=== PATIENT | female | born 1980 | race Caucasian/White ===

== ENCOUNTER 2023-08-14 17:32 | Inpatient (IN) | payer OTHER ==
[~2023-08-14] VITALS: Ht 167.6 cm; Wt 66.9 kg
[2023-08-14] MEDS ORDERED: GABA-1171 PO (18:09)
[2023-08-14] MEDS ORDERED: NADO20TA PO (18:09)
[2023-08-14] MEDS ORDERED: VENL1TAB35 PO (18:09)
[2023-08-14] MEDS ORDERED: TRAZ-252 PO (18:10)
[2023-08-14] MEDS ORDERED: OMEP-173 PO (18:10)
[2023-08-14] MEDS ORDERED: MORP15TA2 PO (18:11)
[2023-08-14] MEDS: ONDANSETRON 4MG 2ML VIAL IV ONE (18:29)
[2023-08-14] MEDS: NS 1,000 ML IV SCH (18:29)
[2023-08-14] MEDS: MORPHINE 4 MG/ML 1ML VIAL IV ONE (18:30)
[2023-08-14] MEDS ORDERED: LACT20EL PO (18:45)
[2023-08-14 18:48] LABS: BASO # 0.1 10^3/uL (0.0-0.2); BASO % 0.7 % (0.0-1.0); EOS % 0.4 % (0.0-3.0); HEMATOCRIT 24.6 % (36.0-47.0); HEMOGLOBIN 8.5 g/dl (12.0-15.5); LYMPH # 2.1 10^3/uL (1.5-5.0); LYMPH % 22.9 % (24.0-44.0); MEAN CORPUSCULAR HEMOGLOBIN 34.1 pg (27.0-33.0); MEAN CORPUSCULAR HGB CONC 34.6 g/dl (32.0-36.5); MEAN CORPUSCULAR VOLUME 98.8 fl (80.0-96.0); MONO # 0.9 10^3/uL (0.0-0.8); MONO % 9.9 % (2.0-8.0); NEUTROPHILS # 5.9 10^3/uL (1.5-8.5); NEUTROPHILS % 65.7 % (36.0-66.0); PLATELET COUNT, AUTOMATED 110 10^3/uL (150-450); RED BLOOD COUNT 2.49 10^6/uL (4.00-5.40)
[2023-08-14 19:03] LABS: INR 1.68; PROTHROMBIN TIME 19.2 SECONDS (12.5-14.5)
[2023-08-14 19:04] LABS: LIPASE 40 U/L (12-53); PARTIAL THROMBOPLASTIN TIME 43.6 SECONDS (24.8-34.2)
[2023-08-14 19:05] LABS: AMYLASE 132 U/L (30-118)
[2023-08-14 19:06] LABS: ALBUMIN 2.3 G/DL (3.2-5.2); ALKALINE PHOSPHATASE 129 U/L (46-116); ALT/SGPT 24 U/L (7.0-40); AST/SGOT 101 U/L (<34); BILIRUBIN,DIRECT 1.4 MG/DL (<0.4); BILIRUBIN,TOTAL 2.1 MG/DL (0.3-1.2); BLOOD UREA NITROGEN 9 MG/DL (9-23); CALCIUM LEVEL 7.8 MG/DL (8.5-10.1); CARBON DIOXIDE LEVEL 30 MMOL/L (20-31); CHLORIDE LEVEL 101 MMOL/L (98-107); CK-MB VALUE MASS < 1.0 NG/ML (<3.6); CPK CREATINE PHOSPHOKINASE 17 U/L (34-145); GLOMERULAR FILTRATION RATE > 60.0 (>58); GLUCOSE, FASTING 99 MG/DL (60-100); MAGNESIUM LEVEL 1.5 MG/DL (1.8-2.4); MB/CK RELATIVE INDEX 5.88 (< OR =4); POTASSIUM SERUM 3.1 MMOL/L (3.5-5.1); SODIUM LEVEL 135 MMOL/L (136-145); TOTAL PROTEIN 6.3 G/DL (5.7-8.2)
[2023-08-14] MEDS ORDERED: ISOVUE-370 76% 100ML VIAL As Ordered ONE (19:13)
[2023-08-14 19:14] LABS: PROCALCITONIN 0.12 ng/ml
[2023-08-14] MEDS: MAG SULF 1GM/100ML (MAG RUN) 1 GM in IV 1 EA IV ONE (19:46)
[2023-08-14] MEDS: POTASSIUM CHLORIDE 10MEQ SR TABLET PO ONE (19:46)
[2023-08-14 20:08] LABS: RSV AMPLIFICATION NEGATIVE (NEGATIVE)
[2023-08-14] MEDS ORDERED: GABA-282 PO (20:44)
[2023-08-14] MEDS ORDERED: HOME MED LIST COMPLETE! XX SCH (20:45)
[2023-08-14] MEDS: metroNIDAZOLE 500 MG in IV 1 EA IV ONE (21:15)
[2023-08-14] MEDS: cefTRIAXone SOD 1 GM in D5W MINI-BAG PLUS 50 ML IV ONE (21:15)
[2023-08-14] MEDS ORDERED: ALBUTEROL SULFATE 2.5MG/0.5ML INH NEB SOLN NEB PRN (22:55)
[2023-08-14] MEDS ORDERED: HYDROMORPHONE HCL 0.5 MG/ 0.5 ML SYRINGE IV PRN (22:55)
[2023-08-15] MEDS: LACTULOSE 20GM/30ML SYRUP UDC PO SCH (00:26)
[2023-08-15] MEDS: PANTOPRAZOLE 40MG VIAL IV SCH (00:26)
[2023-08-15 06:38] LABS: BASO # 0.1 10^3/uL (0.0-0.2); EOS # 0.1 10^3/uL (0.0-0.5); EOS % 0.8 % (0.0-3.0); HEMATOCRIT 23.6 % (36.0-47.0); HEMOGLOBIN 7.8 g/dl (12.0-15.5); LYMPH # 2.1 10^3/uL (1.5-5.0); LYMPH % 24.6 % (24.0-44.0); MEAN CORPUSCULAR HEMOGLOBIN 33.1 pg (27.0-33.0); MEAN CORPUSCULAR HGB CONC 33.1 g/dl (32.0-36.5); MONO # 0.7 10^3/uL (0.0-0.8); MONO % 8.4 % (2.0-8.0); NEUTROPHILS # 5.4 10^3/uL (1.5-8.5); NEUTROPHILS % 64.8 % (36.0-66.0); PLATELET COUNT, AUTOMATED 104 10^3/uL (150-450); RED BLOOD COUNT 2.36 10^6/uL (4.00-5.40); WHITE BLOOD COUNT 8.3 10^3/uL (4.0-10.0)
[2023-08-15 07:01] LABS: BLOOD UREA NITROGEN 8 MG/DL (9-23); CALCIUM LEVEL 7.4 MG/DL (8.5-10.1); CARBON DIOXIDE LEVEL 26 MMOL/L (20-31); CHLORIDE LEVEL 103 MMOL/L (98-107); CREATININE FOR GFR 0.79 MG/DL (0.55-1.30); GLOMERULAR FILTRATION RATE > 60.0 (>58); GLUCOSE, FASTING 120 MG/DL (60-100); IRON (FE) 34 UG/DL (50-170); PERCENT SATURATION 19.1 % (13.2-45.0); PHOSPHORUS LEVEL 1.6 MG/DL (2.5-4.9); POTASSIUM SERUM 3.2 MMOL/L (3.5-5.1); SODIUM LEVEL 135 MMOL/L (136-145); TOTAL IRON BINDING CAPACITY 178 UG/DL (250-425)
[2023-08-15 07:05] LABS: FERRITIN 156.4 NG/ML (7.3-270.7)
[2023-08-15 08:10] LABS: ETHYL ALCOHOL (ETHANOL) 0.004 % (0.000-0.010)
[2023-08-15] MEDS: VENLAFAXINE 25 MG TAB PO SCH (09:00)
[2023-08-15] MEDS ORDERED: POTASSIUM CHLORIDE 10MEQ SR TABLET PO ONE (09:25)
[2023-08-15 10:31] LABS: VITAMIN B12 LEVEL 1658 PG/ML (211-911)
[2023-08-15] MEDS: PERCOCET 5MG/325MG TAB PO PRN (10:48)
[2023-08-15] MEDS: MAG SULF 1GM/100ML (MAG RUN) 1 GM in IV 1 EA IV SCH (10:49)
[2023-08-15 11:08] LABS: HEPATITIS C VIRUS ABY INDEX 0.05 INDEX (<0.8)
[2023-08-15 11:09] LABS: HEPATITIS B CORE ANTIBODY IGM NEGATIVE (NEGATIVE)
[2023-08-15] MEDS ORDERED: MAGNESIUM SULFATE 1GM/100ML D5W BAG (10MG/ML) As Ordered ONE (15:09)
[2023-08-15] MEDS: K-PHOS NEUTRAL 250MG TABLET (SOD.PHOSPHATE/POT.PHOSPHATE) PO SCH (15:10)
[2023-08-15] MEDS: NADOLOL 20MG TABLET PO SCH (15:26)
[2023-08-15] MEDS: MORPHINE 2 MG/ML 1ML VIAL IV PRN (15:26)
[2023-08-15] MEDS: GABAPENTIN 300 MG CAP PO SCH (15:26)
[2023-08-15 16:36] VITALS: BP 105/51; TEMP 98.9; O2SAT 94
[2023-08-15 18:59] VITALS: BP_SYST 108; BP_SYST 88; BP_DIAS 40; BP_DIAS 68
[2023-08-15 20:03] VITALS: BP 101/59; TEMP 98; O2SAT 95
[2023-08-15] MEDS: traZODone 50 MG TAB PO SCH (20:28)
[2023-08-15] MEDS: cefTRIAXone SOD 1 GM in D5W MINI-BAG PLUS 50 ML IV SCH (20:32)
[2023-08-15 23:57] VITALS: BP 92/55; TEMP 97.6; O2SAT 96
[2023-08-16 04:15] VITALS: BP 93/54; TEMP 98.8; O2SAT 96
[2023-08-16 06:06] LABS: BASO # 0.1 10^3/uL (0.0-0.2); BASO % 0.8 % (0.0-1.0); EOS # 0.1 10^3/uL (0.0-0.5); EOS % 1.6 % (0.0-3.0); HEMATOCRIT 23.8 % (36.0-47.0); HEMOGLOBIN 7.8 g/dl (12.0-15.5); LYMPH # 2.9 10^3/uL (1.5-5.0); LYMPH % 33.4 % (24.0-44.0); MEAN CORPUSCULAR HEMOGLOBIN 33.1 pg (27.0-33.0); MEAN CORPUSCULAR HGB CONC 32.8 g/dl (32.0-36.5); MEAN CORPUSCULAR VOLUME 100.8 fl (80.0-96.0); MONO # 0.7 10^3/uL (0.0-0.8); MONO % 7.5 % (2.0-8.0); NEUTROPHILS # 4.9 10^3/uL (1.5-8.5); NEUTROPHILS % 56.5 % (36.0-66.0); PLATELET COUNT, AUTOMATED 110 10^3/uL (150-450); RED BLOOD COUNT 2.36 10^6/uL (4.00-5.40); WHITE BLOOD COUNT 8.7 10^3/uL (4.0-10.0)
[2023-08-16 06:37] LABS: BLOOD UREA NITROGEN 8 MG/DL (9-23); CALCIUM LEVEL 7.8 MG/DL (8.5-10.1); CARBON DIOXIDE LEVEL 26 MMOL/L (20-31); CHLORIDE LEVEL 107 MMOL/L (98-107); GLOMERULAR FILTRATION RATE > 60.0 (>58); GLUCOSE, FASTING 108 MG/DL (60-100); POTASSIUM SERUM 3.1 MMOL/L (3.5-5.1); SODIUM LEVEL 139 MMOL/L (136-145)
[2023-08-16 07:40] LABS: ALBUMIN 1.9 G/DL (3.2-5.2); MAGNESIUM LEVEL 1.7 MG/DL (1.8-2.4); PHOSPHORUS LEVEL 2.5 MG/DL (2.5-4.9)
[2023-08-16 07:42] VITALS: BP 84/48; TEMP 98.2; O2SAT 95
[2023-08-16 08:21] VITALS: BP 90/38
[2023-08-16] MEDS: LR 1,000 ML IV ONE (09:32)
[2023-08-16] MEDS: MAGNESIUM OXIDE 400MG TAB (MAG-OX) PO ONE (09:34)
[2023-08-16] MEDS: POTASSIUM CHLORIDE 10MEQ SR TABLET PO ONE (09:35)
[2023-08-16] MEDS: KCL 10MEQ/100ML SWI (KRUN) 10 MEQ in IV 1 EA IV SCH (09:36)
[2023-08-16] MEDS: MAG SULF 1GM/100ML (MAG RUN) 1 GM in IV 1 EA IV ONE (11:20)
[2023-08-16 12:01] VITALS: BP 102/55; TEMP 97.6; O2SAT 91
[2023-08-16] MEDS: MIDODRINE 5 MG TAB PO SCH (13:01)
[2023-08-16 16:13] VITALS: BP 112/67; TEMP 98.6; O2SAT 96
[2023-08-16 20:00] VITALS: BP 110/64; TEMP 98.4; O2SAT 94
[2023-08-16] MEDS: LACTULOSE 20GM/30ML SYRUP UDC PO SCH (20:37)
[2023-08-17] VITALS (8 sets, daily range): BP systolic 98–116; BP diastolic 54–82; TEMP 97.3–99; O2SAT 91–96
[2023-08-17 09:46] LABS: HEMATOCRIT 22.5 % (36.0-47.0); HEMOGLOBIN 7.3 g/dl (12.0-15.5); MEAN CORPUSCULAR HEMOGLOBIN 32.9 pg (27.0-33.0); MEAN CORPUSCULAR HGB CONC 32.4 g/dl (32.0-36.5); MEAN CORPUSCULAR VOLUME 101.4 fl (80.0-96.0); PLATELET COUNT, AUTOMATED 110 10^3/uL (150-450); RED BLOOD COUNT 2.22 10^6/uL (4.00-5.40); WHITE BLOOD COUNT 8.2 10^3/uL (4.0-10.0)
[2023-08-17 10:14] LABS: BLOOD UREA NITROGEN 7 MG/DL (9-23); CALCIUM LEVEL 7.9 MG/DL (8.5-10.1); CARBON DIOXIDE LEVEL 26 MMOL/L (20-31); CHLORIDE LEVEL 108 MMOL/L (98-107); CREATININE FOR GFR 0.71 MG/DL (0.55-1.30); GLOMERULAR FILTRATION RATE > 60.0 (>58); GLUCOSE, FASTING 84 MG/DL (60-100); MAGNESIUM LEVEL 1.6 MG/DL (1.8-2.4); PHOSPHORUS LEVEL 2.8 MG/DL (2.5-4.9); POTASSIUM SERUM 3.6 MMOL/L (3.5-5.1); SODIUM LEVEL 138 MMOL/L (136-145)
[2023-08-17] MEDS: MAG SULF 1GM/100ML (MAG RUN) 1 GM in IV 1 EA IV SCH (12:14)
[2023-08-17] MEDS: POTASSIUM CHLORIDE 10MEQ SR TABLET PO ONE (12:15)
[2023-08-17] MEDS: ONDANSETRON 4MG 2ML VIAL IV PRN (14:58)
[2023-08-17 16:27] LABS: HEMATOCRIT 26.7 % (36.0-47.0); HEMOGLOBIN 8.8 g/dl (12.0-15.5); MEAN CORPUSCULAR HEMOGLOBIN 33.1 pg (27.0-33.0); MEAN CORPUSCULAR VOLUME 100.4 fl (80.0-96.0); PLATELET COUNT, AUTOMATED 129 10^3/uL (150-450); RED BLOOD COUNT 2.66 10^6/uL (4.00-5.40); WHITE BLOOD COUNT 11.8 10^3/uL (4.0-10.0)
[2023-08-17 18:01] LABS: SOURCE, BODY FLUID ALBUMIN ASCITES
[2023-08-17 18:07] LABS: APPEARANCE, BODY FLUID CLEAR (CLEAR); ASCITES FL COLOR PALE YELLOW (COLORLESS); SOURCE, BODY FLUID ASCITES
[2023-08-17 18:22] LABS: SOURCE, BODY FLUID GLUCOSE ASCITES
[2023-08-17 18:24] LABS: SOURCE, BODY FLUID TOT PROTEIN ASCITES; TOTAL PROTEIN, BODY FLUID < 2.0 G/DL (NOT ESTABLISHED)
[2023-08-17 18:25] LABS: HEMOGLOBIN 8.6 g/dl (12.0-15.5)
[2023-08-17 18:33] LABS: INR 1.58; PROTHROMBIN TIME 18.4 SECONDS (12.5-14.5)
[2023-08-17] MEDS: OCTREOTIDE ACETATE 1,200 MCG in NS 238.8 ML IV SCH (19:59)
[2023-08-17] MEDS: OCTREOTIDE ACETATE 100MCG/ML VIAL **IV ADMINISTRATION ONLY IV ONE (19:59)
[2023-08-18] VITALS (9 sets, daily range): BP systolic 96–110; BP diastolic 50–60; TEMP 97.7–99.1; O2SAT 93–98
[2023-08-18 00:46] LABS: HEMATOCRIT 23.7 % (36.0-47.0)
[2023-08-18 06:19] LABS: HEMATOCRIT 23.7 % (36.0-47.0); HEMOGLOBIN 7.8 g/dl (12.0-15.5); MEAN CORPUSCULAR HEMOGLOBIN 32.6 pg (27.0-33.0); MEAN CORPUSCULAR HGB CONC 32.9 g/dl (32.0-36.5); MEAN CORPUSCULAR VOLUME 99.2 fl (80.0-96.0); PLATELET COUNT, AUTOMATED 125 10^3/uL (150-450); RED BLOOD COUNT 2.39 10^6/uL (4.00-5.40); WHITE BLOOD COUNT 7.6 10^3/uL (4.0-10.0)
[2023-08-18 06:42] LABS: BLOOD UREA NITROGEN 6 MG/DL (9-23); CALCIUM LEVEL 8.1 MG/DL (8.5-10.1); CARBON DIOXIDE LEVEL 25 MMOL/L (20-31); CHLORIDE LEVEL 109 MMOL/L (98-107); CREATININE FOR GFR 0.68 MG/DL (0.55-1.30); GLOMERULAR FILTRATION RATE > 60.0 (>58); GLUCOSE, FASTING 128 MG/DL (60-100); MAGNESIUM LEVEL 1.8 MG/DL (1.8-2.4); POTASSIUM SERUM 4.4 MMOL/L (3.5-5.1); SODIUM LEVEL 137 MMOL/L (136-145)
[2023-08-18 07:58] LABS: ALBUMIN 1.7 G/DL (3.2-5.2); ALKALINE PHOSPHATASE 130 U/L (46-116); ALT/SGPT 26 U/L (7.0-40); AST/SGOT 107 U/L (<34); BILIRUBIN,TOTAL 1.6 MG/DL (0.3-1.2); TOTAL PROTEIN 5.2 G/DL (5.7-8.2)
[2023-08-18] MEDS: FUROSEMIDE 20MG/2ML VIAL IV ONE (15:53)
[2023-08-18 17:18] LABS: HEMOGLOBIN 10.2 g/dl (12.0-15.5)
[2023-08-19 00:16] VITALS: BP 99/59; TEMP 98.8; O2SAT 99
[2023-08-19 00:46] LABS: HEMATOCRIT 26.7 % (36.0-47.0); HEMOGLOBIN 9.1 g/dl (12.0-15.5)
[2023-08-19 03:43] VITALS: BP 104/60; TEMP 98.9; O2SAT 98
[2023-08-19 06:12] LABS: HEMATOCRIT 25.7 % (36.0-47.0); HEMOGLOBIN 8.9 g/dl (12.0-15.5); MEAN CORPUSCULAR HEMOGLOBIN 33.6 pg (27.0-33.0); MEAN CORPUSCULAR HGB CONC 34.6 g/dl (32.0-36.5); PLATELET COUNT, AUTOMATED 140 10^3/uL (150-450); RED BLOOD COUNT 2.65 10^6/uL (4.00-5.40); WHITE BLOOD COUNT 8.8 10^3/uL (4.0-10.0)
[2023-08-19 06:47] LABS: BLOOD UREA NITROGEN 5 MG/DL (9-23); CALCIUM LEVEL 7.8 MG/DL (8.5-10.1); CARBON DIOXIDE LEVEL 24 MMOL/L (20-31); CHLORIDE LEVEL 109 MMOL/L (98-107); CREATININE FOR GFR 0.68 MG/DL (0.55-1.30); GLOMERULAR FILTRATION RATE > 60.0 (>58); GLUCOSE, FASTING 114 MG/DL (60-100); MAGNESIUM LEVEL 1.4 MG/DL (1.8-2.4); POTASSIUM SERUM 4.1 MMOL/L (3.5-5.1); SODIUM LEVEL 139 MMOL/L (136-145)
[2023-08-19 07:45] VITALS: BP 102/62; TEMP 97.6; O2SAT 92
[2023-08-19] MEDS: MAG SULF 1GM/100ML (MAG RUN) 1 GM in IV 1 EA IV SCH (10:40)
[2023-08-19 10:42] LABS: HEMOGLOBIN 9.7 g/dl (12.0-15.5)
[2023-08-19 10:48] VITALS: BP 110/72
[2023-08-19 11:54] VITALS: BP 111/63; TEMP 97.4; O2SAT 93
[2023-08-19] MEDS ORDERED: MIDO5TA PO (12:01)
[2023-08-19] MEDS ORDERED: LACT20EL PO (12:01)
[2023-08-19] MEDS ORDERED: CIPR500T39 PO (12:01)
[2023-08-19] MEDS ORDERED: MAGN400T2 PO (12:01)
[2023-08-19] MEDS ORDERED: LASI20TA3 PO (12:01)
[2023-08-19] MEDS ORDERED: OMEP-173 PO (12:11)
== END 2023-08-19 14:14 | disposition home or self-care (01) | DRG 253 ==
LOC: EDBD 17:32 → M ED 17:32 → M ED INP 22:52 → M PCU 08-15 11:44
PROVIDERS: ADMIT Internal Medicine; ATTEND Internal Medicine
PROC: 0W9G3ZZ Drainage of Peritoneal Cavity, Percutaneous Approach (ICD-10-PCS; 2023-08-16)
PROC: B246ZZZ Ultrasonography of Right and Left Heart (ICD-10-PCS; 2023-08-16)
PROC: 30233N1 Transfusion of Nonautologous Red Blood Cells into Peripheral Vein, Percutaneous Approach (ICD-10-PCS; principal; 2023-08-17 15:30)
DX: K92.2 Gastrointestinal hemorrhage, unspecified (principal); D61.818 Other pancytopenia; K65.2 Spontaneous bacterial peritonitis; D68.4 Acquired coagulation factor deficiency; K76.6 Portal hypertension; D69.6 Thrombocytopenia, unspecified; E83.42 Hypomagnesemia; R16.1 Splenomegaly, not elsewhere classified; K70.31 Alcoholic cirrhosis of liver with ascites; I95.1 Orthostatic hypotension; M54.9 Dorsalgia, unspecified; F39 Unspecified mood [affective] disorder; E87.6 Hypokalemia; R55 Syncope and collapse; D53.9 Nutritional anemia, unspecified; G89.29 Other chronic pain; Z79.899 Other long term (current) drug therapy; Z88.2 Allergy status to sulfonamides; Z20.822 Contact with and (suspected) exposure to COVID-19; Z88.8 Allergy status to other drugs, medicaments and biological substances; I85.10 Secondary esophageal varices without bleeding

== ENCOUNTER 2023-08-28 00:58 | Inpatient (IN) | payer MEDICAID, OTHER ==
[~2023-08-28] VITALS: Ht 170.2 cm; Wt 71.7 kg
[~2023-08-28 00:58] MED LIST: CIPR500T39 PO; GABA-1171 PO; GABA-282 PO; LACT20EL PO; LASI20TA3 PO; MAGN400T2 PO; MIDO5TA PO; MORP15TA2 PO; NADO20TA PO; OMEP-173 PO; TRAZ-252 PO; VENL1TAB35 PO
[2023-08-28] MEDS: NS 1,000 ML IV ONE (01:57)
[2023-08-28] MEDS: ONDANSETRON 4MG 2ML VIAL IV ONE (01:57)
[2023-08-28] MEDS: MORPHINE 4 MG/ML 1ML VIAL IV ONE ×2 (01:57→05:11)
[2023-08-28 02:08] LABS: BASO # 0.1 10^3/uL (0.0-0.2); BASO % 0.7 % (0.0-1.0); EOS # 0.4 10^3/uL (0.0-0.5); EOS % 3.4 % (0.0-3.0); HEMATOCRIT 26.8 % (36.0-47.0); HEMOGLOBIN 9.2 g/dl (12.0-15.5); MEAN CORPUSCULAR HEMOGLOBIN 33.5 pg (27.0-33.0); MEAN CORPUSCULAR HGB CONC 34.3 g/dl (32.0-36.5); MEAN CORPUSCULAR VOLUME 97.5 fl (80.0-96.0); MONO # 0.9 10^3/uL (0.0-0.8); NEUTROPHILS # 6.8 10^3/uL (1.5-8.5); NEUTROPHILS % 60.5 % (36.0-66.0); PLATELET COUNT, AUTOMATED 202 10^3/uL (150-450); RED BLOOD COUNT 2.75 10^6/uL (4.00-5.40); WHITE BLOOD COUNT 11.2 10^3/uL (4.0-10.0)
[2023-08-28 02:29] LABS: LIPASE 47 U/L (12-53)
[2023-08-28 02:31] LABS: ALBUMIN 2.1 G/DL (3.2-5.2); ALKALINE PHOSPHATASE 107 U/L (46-116); ALT/SGPT 23 U/L (7.0-40); AST/SGOT 92 U/L (<34); BILIRUBIN,TOTAL 1.6 MG/DL (0.3-1.2); BLOOD UREA NITROGEN 7 MG/DL (9-23); CALCIUM LEVEL 7.9 MG/DL (8.5-10.1); CARBON DIOXIDE LEVEL 24 MMOL/L (20-31); CHLORIDE LEVEL 106 MMOL/L (98-107); CREATININE FOR GFR 0.53 MG/DL (0.55-1.30); GLOMERULAR FILTRATION RATE > 60.0 (>58); GLUCOSE, FASTING 93 MG/DL (60-100); POTASSIUM SERUM 3.2 MMOL/L (3.5-5.1); SODIUM LEVEL 137 MMOL/L (136-145); TOTAL PROTEIN 6.2 G/DL (5.7-8.2)
[2023-08-28 02:41] LABS: INR 1.37; PARTIAL THROMBOPLASTIN TIME 41.2 SECONDS (24.8-34.2); PROTHROMBIN TIME 16.4 SECONDS (12.5-14.5)
[2023-08-28] MEDS: POTASSIUM CHLORIDE 10% LIQ 20MEQ/15ML UDC PO ONE (03:18)
[2023-08-28 10:58] LABS: RSV AMPLIFICATION NEGATIVE (NEGATIVE)
[2023-08-28] MEDS ORDERED: MIDO5TA PO (10:59)
[2023-08-28] MEDS ORDERED: OMEP1CAP73 PO (10:59)
[2023-08-28] MEDS ORDERED: FURO20TA2 PO (10:59)
[2023-08-28] MEDS ORDERED: MAGN400T2 PO (10:59)
[2023-08-28] MEDS ORDERED: HOME MED LIST COMPLETE! XX SCH (11:00)
[2023-08-28] MEDS: MORPHINE 4 MG/ML 1ML VIAL IV PRN (11:10)
[2023-08-28] MEDS: KETOROLAC 30 MG/ML 1ML VIAL IV SCH (13:00)
[2023-08-28 14:05] VITALS: BP 109/69; TEMP 98.1; O2SAT 99
[2023-08-28] MEDS: oxyCODONE 5MG TAB PO PRN (14:12)
[2023-08-28] MEDS: PANTOPRAZOLE 40MG VIAL IV SCH (14:12)
[2023-08-28] MEDS: FUROSEMIDE 40MG/4ML VIAL IV SCH (14:12)
[2023-08-28] MEDS: cefTRIAXone SOD 1 GM in D5W MINI-BAG PLUS 50 ML IV SCH (14:13)
[2023-08-28] MEDS: SPIRONOLACTONE 25 MG TAB PO SCH (16:27)
[2023-08-28 22:00] VITALS: BP 105/59; TEMP 98.8; O2SAT 96
[2023-08-28] MEDS: zolPIDEM TARTRATE 5 MG TAB PO ONE (23:04)
[2023-08-29 05:20] VITALS: BP 114/69; TEMP 99; O2SAT 96
[2023-08-29 06:41] LABS: BASO # 0.1 10^3/uL (0.0-0.2); BASO % 1.1 % (0.0-1.0); EOS # 0.3 10^3/uL (0.0-0.5); HEMATOCRIT 24.1 % (36.0-47.0); HEMOGLOBIN 8.1 g/dl (12.0-15.5); LYMPH # 2.6 10^3/uL (1.5-5.0); MEAN CORPUSCULAR HEMOGLOBIN 32.7 pg (27.0-33.0); MEAN CORPUSCULAR HGB CONC 33.6 g/dl (32.0-36.5); MEAN CORPUSCULAR VOLUME 97.2 fl (80.0-96.0); MONO # 0.7 10^3/uL (0.0-0.8); MONO % 7.9 % (2.0-8.0); NEUTROPHILS # 4.6 10^3/uL (1.5-8.5); NEUTROPHILS % 55.6 % (36.0-66.0); PLATELET COUNT, AUTOMATED 167 10^3/uL (150-450); RED BLOOD COUNT 2.48 10^6/uL (4.00-5.40); WHITE BLOOD COUNT 8.3 10^3/uL (4.0-10.0)
[2023-08-29 06:54] LABS: BLOOD UREA NITROGEN 7 MG/DL (9-23); CALCIUM LEVEL 7.6 MG/DL (8.5-10.1); CARBON DIOXIDE LEVEL 25 MMOL/L (20-31); CHLORIDE LEVEL 105 MMOL/L (98-107); CREATININE FOR GFR 0.65 MG/DL (0.55-1.30); GLOMERULAR FILTRATION RATE > 60.0 (>58); GLUCOSE, FASTING 101 MG/DL (60-100); POTASSIUM SERUM 3.4 MMOL/L (3.5-5.1); SODIUM LEVEL 137 MMOL/L (136-145)
[2023-08-29 10:00] VITALS: TEMP 101
[2023-08-29] MEDS: LACTULOSE 20GM/30ML SYRUP UDC PO SCH (11:12)
[2023-08-29] MEDS: VENLAFAXINE 25 MG TAB PO SCH (11:12)
[2023-08-29] MEDS: MIDODRINE 5 MG TAB PO SCH (11:13)
[2023-08-29] MEDS: POTASSIUM CHLORIDE 10MEQ SR TABLET PO SCH (11:13)
[2023-08-29] MEDS: MAGNESIUM OXIDE 400MG TAB (MAG-OX) PO SCH (11:13)
[2023-08-29] MEDS: SPIRONOLACTONE 50 MG TAB PO SCH (11:13)
[2023-08-29] MEDS: IBUPROFEN 400MG TAB PO PRN (11:14)
[2023-08-29 13:15] VITALS: TEMP 99.9
[2023-08-29 14:00] VITALS: BP 119/75; TEMP 99.4; O2SAT 92
[2023-08-29] MEDS: FUROSEMIDE 40MG/4ML VIAL IV SCH (15:09)
[2023-08-29] MEDS: ONDANSETRON 4MG 2ML VIAL IV PRN (16:08)
[2023-08-29] MEDS: GABAPENTIN 300 MG CAP PO SCH (16:08)
[2023-08-29] MEDS: traZODone 50 MG TAB PO SCH (20:29)
[2023-08-29 20:30] VITALS: BP 119/75; TEMP 97.7; O2SAT 92
[2023-08-30] VITALS (11 sets, daily range): BP systolic 101–116; BP diastolic 55–74; TEMP 97.5–99.5; O2SAT 93–98
[2023-08-30] MEDS: LIDOCAINE 5% (LIDODERM) PATCH TD ONE (02:17)
[2023-08-30 05:46] LABS: BASO # 0.1 10^3/uL (0.0-0.2); BASO % 0.9 % (0.0-1.0); EOS # 0.3 10^3/uL (0.0-0.5); EOS % 4.3 % (0.0-3.0); HEMATOCRIT 24.8 % (36.0-47.0); HEMOGLOBIN 8.3 g/dl (12.0-15.5); LYMPH # 2.5 10^3/uL (1.5-5.0); LYMPH % 30.7 % (24.0-44.0); MEAN CORPUSCULAR HEMOGLOBIN 32.7 pg (27.0-33.0); MEAN CORPUSCULAR HGB CONC 33.5 g/dl (32.0-36.5); MEAN CORPUSCULAR VOLUME 97.6 fl (80.0-96.0); MONO # 0.6 10^3/uL (0.0-0.8); NEUTROPHILS # 4.5 10^3/uL (1.5-8.5); NEUTROPHILS % 55.7 % (36.0-66.0); PLATELET COUNT, AUTOMATED 156 10^3/uL (150-450); RED BLOOD COUNT 2.54 10^6/uL (4.00-5.40)
[2023-08-30 06:10] LABS: TOTAL IRON BINDING CAPACITY 210 UG/DL (250-425)
[2023-08-30 06:12] LABS: BLOOD UREA NITROGEN 5 MG/DL (9-23); CALCIUM LEVEL 7.8 MG/DL (8.5-10.1); CARBON DIOXIDE LEVEL 27 MMOL/L (20-31); CHLORIDE LEVEL 103 MMOL/L (98-107); CREATININE FOR GFR 0.63 MG/DL (0.55-1.30); GLOMERULAR FILTRATION RATE > 60.0 (>58); GLUCOSE, FASTING 94 MG/DL (60-100); IRON (FE) 33 UG/DL (50-170); PERCENT SATURATION 15.7 % (13.2-45.0); POTASSIUM SERUM 3.1 MMOL/L (3.5-5.1); SODIUM LEVEL 137 MMOL/L (136-145)
[2023-08-30 06:13] LABS: VITAMIN B12 LEVEL 1001 PG/ML (211-911)
[2023-08-30] MEDS: POTASSIUM CHLORIDE 10MEQ SR TABLET PO SCH (09:30)
[2023-08-30] MEDS: MORPHINE 2 MG/ML 1ML VIAL IV ONE (09:55)
[2023-08-30 12:32] LABS: APPEARANCE, BODY FLUID CLEAR (CLEAR); ASCITES FL COLOR YELLOW (COLORLESS); SOURCE, BODY FLUID ASCITES
[2023-08-30 13:38] LABS: SOURCE, BODY FLUID ALBUMIN ASCITES
[2023-08-30 13:44] LABS: SOURCE, BODY FLUID GLUCOSE ASCITES
[2023-08-30 13:46] LABS: SOURCE, BODY FLUID TOT PROTEIN ASCITES; TOTAL PROTEIN, BODY FLUID < 2.0 G/DL (NOT ESTABLISHED)
[2023-08-30] MEDS: MORPHINE 30 MG TAB **MSIR PO PRN (14:01)
[2023-08-30] MEDS: FUROSEMIDE 40MG/4ML VIAL IV SCH (17:07)
[2023-08-31] VITALS (9 sets, daily range): BP systolic 104–120; BP diastolic 55–76; TEMP 97.5–98.1; O2SAT 90–96
[2023-08-31 06:07] LABS: BASO # 0.1 10^3/uL (0.0-0.2); BASO % 0.7 % (0.0-1.0); EOS # 0.3 10^3/uL (0.0-0.5); EOS % 3.7 % (0.0-3.0); HEMATOCRIT 23.3 % (36.0-47.0); HEMOGLOBIN 7.8 g/dl (12.0-15.5); LYMPH # 2.2 10^3/uL (1.5-5.0); LYMPH % 30.6 % (24.0-44.0); MEAN CORPUSCULAR HEMOGLOBIN 33.1 pg (27.0-33.0); MEAN CORPUSCULAR HGB CONC 33.5 g/dl (32.0-36.5); MEAN CORPUSCULAR VOLUME 98.7 fl (80.0-96.0); MONO # 0.6 10^3/uL (0.0-0.8); MONO % 7.9 % (2.0-8.0); PLATELET COUNT, AUTOMATED 148 10^3/uL (150-450); RED BLOOD COUNT 2.36 10^6/uL (4.00-5.40); WHITE BLOOD COUNT 7.1 10^3/uL (4.0-10.0)
[2023-08-31 06:28] LABS: BLOOD UREA NITROGEN 5 MG/DL (9-23); CALCIUM LEVEL 7.8 MG/DL (8.5-10.1); CARBON DIOXIDE LEVEL 30 MMOL/L (20-31); CHLORIDE LEVEL 106 MMOL/L (98-107); CREATININE FOR GFR 0.58 MG/DL (0.55-1.30); GLOMERULAR FILTRATION RATE > 60.0 (>58); GLUCOSE, FASTING 114 MG/DL (60-100); POTASSIUM SERUM 3.2 MMOL/L (3.5-5.1); SODIUM LEVEL 138 MMOL/L (136-145)
[2023-08-31] MEDS: ENOXAPARIN 40MG/0.4ML SYRINGE (J1650 PER 10MG) SC SCH (20:17)
[2023-09-01 04:11] VITALS: BP 105/56; TEMP 97.9; O2SAT 95
[2023-09-01 06:06] LABS: BASO # 0.1 10^3/uL (0.0-0.2); BASO % 0.8 % (0.0-1.0); EOS # 0.3 10^3/uL (0.0-0.5); EOS % 3.2 % (0.0-3.0); HEMATOCRIT 25.6 % (36.0-47.0); HEMOGLOBIN 8.5 g/dl (12.0-15.5); LYMPH # 2.2 10^3/uL (1.5-5.0); LYMPH % 27.4 % (24.0-44.0); MEAN CORPUSCULAR HEMOGLOBIN 32.2 pg (27.0-33.0); MEAN CORPUSCULAR HGB CONC 33.2 g/dl (32.0-36.5); MONO # 0.7 10^3/uL (0.0-0.8); MONO % 8.2 % (2.0-8.0); NEUTROPHILS # 4.7 10^3/uL (1.5-8.5); PLATELET COUNT, AUTOMATED 149 10^3/uL (150-450); RED BLOOD COUNT 2.64 10^6/uL (4.00-5.40); WHITE BLOOD COUNT 7.9 10^3/uL (4.0-10.0)
[2023-09-01 06:24] LABS: BLOOD UREA NITROGEN < 5 MG/DL (9-23); CALCIUM LEVEL 8.1 MG/DL (8.5-10.1); CARBON DIOXIDE LEVEL 31 MMOL/L (20-31); CHLORIDE LEVEL 104 MMOL/L (98-107); CREATININE FOR GFR 0.62 MG/DL (0.55-1.30); GLOMERULAR FILTRATION RATE > 60.0 (>58); GLUCOSE, FASTING 109 MG/DL (60-100); POTASSIUM SERUM 3.5 MMOL/L (3.5-5.1); SODIUM LEVEL 137 MMOL/L (136-145)
[2023-09-01 08:48] VITALS: BP 113/72
[2023-09-01] MEDS: cefTRIAXone SOD 1 GM in D5W MINI-BAG PLUS 50 ML IV SCH (11:13)
[2023-09-01 11:22] VITALS: BP 113/72
[2023-09-01] MEDS: LIDOCAINE 5% (LIDODERM) PATCH TD SCH (12:10)
[2023-09-01] MEDS: oxyCODONE 5MG TAB PO PRN (12:13)
[2023-09-01 14:00] VITALS: BP 112/71; TEMP 97.9; O2SAT 94
[2023-09-01] MEDS: GABAPENTIN 400MG CAP PO SCH (16:10)
[2023-09-01 16:11] VITALS: BP 106/68
[2023-09-01] MEDS: FUROSEMIDE 40 MG TAB PO SCH (16:11)
[2023-09-01] MEDS: MELOXICAM (MOBIC) 7.5 MG TAB PO SCH (17:25)
[2023-09-01 20:13] VITALS: BP 107/66; TEMP 97.9; O2SAT 92
[2023-09-02 05:57] VITALS: BP 101/62; TEMP 97.7; O2SAT 94
[2023-09-02 06:43] LABS: BASO # 0.1 10^3/uL (0.0-0.2); EOS # 0.3 10^3/uL (0.0-0.5); EOS % 3.5 % (0.0-3.0); HEMATOCRIT 26.8 % (36.0-47.0); HEMOGLOBIN 8.9 g/dl (12.0-15.5); LYMPH # 2.2 10^3/uL (1.5-5.0); LYMPH % 26.4 % (24.0-44.0); MEAN CORPUSCULAR HEMOGLOBIN 32.4 pg (27.0-33.0); MEAN CORPUSCULAR HGB CONC 33.2 g/dl (32.0-36.5); MEAN CORPUSCULAR VOLUME 97.5 fl (80.0-96.0); MONO # 0.7 10^3/uL (0.0-0.8); MONO % 7.9 % (2.0-8.0); NEUTROPHILS # 5.1 10^3/uL (1.5-8.5); NEUTROPHILS % 60.8 % (36.0-66.0); PLATELET COUNT, AUTOMATED 156 10^3/uL (150-450); RED BLOOD COUNT 2.75 10^6/uL (4.00-5.40); WHITE BLOOD COUNT 8.4 10^3/uL (4.0-10.0)
[2023-09-02 07:00] LABS: BLOOD UREA NITROGEN 6 MG/DL (9-23); CALCIUM LEVEL 8.3 MG/DL (8.5-10.1); CARBON DIOXIDE LEVEL 31 MMOL/L (20-31); CHLORIDE LEVEL 103 MMOL/L (98-107); CREATININE FOR GFR 0.62 MG/DL (0.55-1.30); GLOMERULAR FILTRATION RATE > 60.0 (>58); GLUCOSE, FASTING 101 MG/DL (60-100); POTASSIUM SERUM 3.9 MMOL/L (3.5-5.1); SODIUM LEVEL 138 MMOL/L (136-145)
[2023-09-02 08:00] VITALS: BP 118/68; TEMP 97.7; O2SAT 92
[2023-09-02 08:28] LABS: MAGNESIUM LEVEL 1.4 MG/DL (1.8-2.4)
[2023-09-02] MEDS: POTASSIUM CHLORIDE 10MEQ SR TABLET PO SCH (08:49)
[2023-09-02] MEDS ORDERED: PILL CUTTER 1 EACH XX ONE (09:39)
[2023-09-02] MEDS: CEFDINIR 300 MG CAP (OMNICEF) PO SCH (09:41)
[2023-09-02] MEDS: MAG SULF 1GM/100ML (MAG RUN) 1 GM in IV 1 EA IV SCH (13:02)
[2023-09-02 14:00] VITALS: BP 112/62; TEMP 97.7; O2SAT 95
[2023-09-02] MEDS: MAGNESIUM OXIDE 400MG TAB (MAG-OX) PO SCH (17:47)
[2023-09-02 20:21] VITALS: BP 118/73; TEMP 97.7; O2SAT 96
[2023-09-03 05:30] VITALS: BP 110/65; TEMP 98.2; O2SAT 93
[2023-09-03 06:28] LABS: BASO # 0.1 10^3/uL (0.0-0.2); BASO % 0.7 % (0.0-1.0); EOS # 0.3 10^3/uL (0.0-0.5); EOS % 3.2 % (0.0-3.0); HEMATOCRIT 26.6 % (36.0-47.0); HEMOGLOBIN 8.8 g/dl (12.0-15.5); LYMPH # 2.1 10^3/uL (1.5-5.0); MEAN CORPUSCULAR HEMOGLOBIN 32.5 pg (27.0-33.0); MEAN CORPUSCULAR HGB CONC 33.1 g/dl (32.0-36.5); MEAN CORPUSCULAR VOLUME 98.2 fl (80.0-96.0); MONO # 0.7 10^3/uL (0.0-0.8); MONO % 7.8 % (2.0-8.0); NEUTROPHILS # 5.5 10^3/uL (1.5-8.5); PLATELET COUNT, AUTOMATED 170 10^3/uL (150-450); RED BLOOD COUNT 2.71 10^6/uL (4.00-5.40); WHITE BLOOD COUNT 8.6 10^3/uL (4.0-10.0)
[2023-09-03 06:47] LABS: BLOOD UREA NITROGEN 6 MG/DL (9-23); CALCIUM LEVEL 8.4 MG/DL (8.5-10.1); CARBON DIOXIDE LEVEL 32 MMOL/L (20-31); CHLORIDE LEVEL 103 MMOL/L (98-107); CREATININE FOR GFR 0.69 MG/DL (0.55-1.30); GLOMERULAR FILTRATION RATE > 60.0 (>58); GLUCOSE, FASTING 100 MG/DL (60-100); POTASSIUM SERUM 4.2 MMOL/L (3.5-5.1); SODIUM LEVEL 139 MMOL/L (136-145)
[2023-09-03 09:41] VITALS: BP 111/64; TEMP 97.9; O2SAT 91
[2023-09-03 12:25] VITALS: BP 110/65
[2023-09-03 14:00] VITALS: BP 106/63; TEMP 97.9; O2SAT 92
[2023-09-03] MEDS ORDERED: CEFD300CAP PO (14:27)
[2023-09-03] MEDS ORDERED: GABA-284 PO (14:27)
[2023-09-03] MEDS ORDERED: OXYC-517 PO (14:27)
[2023-09-03] MEDS ORDERED: MELO7.5T35 PO (14:27)
[2023-09-03] MEDS ORDERED: FURO40TA2 PO (14:27)
[2023-09-03] MEDS ORDERED: ALDA50TA2 PO (14:27)
== END 2023-09-03 15:51 | disposition home or self-care (01) | DRG 280 ==
LOC: M ED 00:58 → M ED INP 12:29 → M MSPAV 13:43
PROVIDERS: ADMIT Internal Medicine Nephrology; ATTEND Internal Medicine Nephrology
PROC: 30233J1 Transfusion of Nonautologous Serum Albumin into Peripheral Vein, Percutaneous Approach (ICD-10-PCS; 2023-08-30)
PROC: 0W9G3ZZ Drainage of Peritoneal Cavity, Percutaneous Approach (ICD-10-PCS; 2023-08-30)
PROC: 30233N1 Transfusion of Nonautologous Red Blood Cells into Peripheral Vein, Percutaneous Approach (ICD-10-PCS; principal; 2023-08-31)
DX: K70.31 Alcoholic cirrhosis of liver with ascites (principal); I95.89 Other hypotension; D69.6 Thrombocytopenia, unspecified; S72.051A Unspecified fracture of head of right femur, initial encounter for closed fracture; M34.9 Systemic sclerosis, unspecified; I27.20 Pulmonary hypertension, unspecified; I85.10 Secondary esophageal varices without bleeding; M87.051 Idiopathic aseptic necrosis of right femur; M87.052 Idiopathic aseptic necrosis of left femur; R26.89 Other abnormalities of gait and mobility; M16.12 Unilateral primary osteoarthritis, left hip; K31.89 Other diseases of stomach and duodenum; N20.0 Calculus of kidney; F32.A Depression, unspecified; E78.5 Hyperlipidemia, unspecified; I10 Essential (primary) hypertension; K21.9 Gastro-esophageal reflux disease without esophagitis; F17.200 Nicotine dependence, unspecified, uncomplicated; Z79.899 Other long term (current) drug therapy; Z88.2 Allergy status to sulfonamides; Z88.8 Allergy status to other drugs, medicaments and biological substances; Z11.52 Encounter for screening for COVID-19; Z90.79 Acquired absence of other genital organ(s); X58.XXXA Exposure to other specified factors, initial encounter; Y92.9 Unspecified place or not applicable

== ENCOUNTER 2023-10-07 01:02 | Inpatient (IN) | payer MEDICAID, OTHER ==
[~2023-10-07] VITALS: Ht 170.2 cm; Wt 63.5 kg
[~2023-10-07 01:02] MED LIST changes: +ALDA50TA2 PO; +CEFD300CAP PO; +FURO20TA2 PO; +FURO40TA2 PO; +GABA-284 PO; +MELO7.5T35 PO; +OMEP1CAP73 PO; +OXYC-517 PO
[2023-10-07 02:45] LABS: VENOUS BASE EXCESS -1.5 (-2.0-2.0); VENOUS HCO3 20.1 MMOL/L (23.0-27.0); VENOUS O2 SATURATION 96.1 % (60.0-80.0); VENOUS PARTIAL PRESSURE CO2 24.4 mmHg (38.0-50.0); VENOUS PARTIAL PRESSURE O2 80.8 mmHg (30.0-50.0); VENOUS PH 7.533 UNITS (7.330-7.430); VENOUS STANDARD HCO3 23.2 MMOL/L; VENOUS TOTAL CO2 20.8 MMOL/L (24.0-28.0)
[2023-10-07 02:50] LABS: BASO # 0.1 10^3/uL (0.0-0.2); BASO % 0.9 % (0.0-1.0); EOS # 0.3 10^3/uL (0.0-0.5); HEMATOCRIT 25.3 % (36.0-47.0); LYMPH # 3.5 10^3/uL (1.5-5.0); LYMPH % 28.2 % (24.0-44.0); MEAN CORPUSCULAR HEMOGLOBIN 32.5 pg (27.0-33.0); MEAN CORPUSCULAR HGB CONC 35.6 g/dl (32.0-36.5); MEAN CORPUSCULAR VOLUME 91.3 fl (80.0-96.0); MONO # 1.1 10^3/uL (0.0-0.8); MONO % 9.1 % (2.0-8.0); NEUTROPHILS # 7.4 10^3/uL (1.5-8.5); NEUTROPHILS % 59.3 % (36.0-66.0); PLATELET COUNT, AUTOMATED 138 10^3/uL (150-450); RED BLOOD COUNT 2.77 10^6/uL (4.00-5.40); WHITE BLOOD COUNT 12.5 10^3/uL (4.0-10.0)
[2023-10-07 03:03] LABS: INR 1.62; PARTIAL THROMBOPLASTIN TIME 38.9 SECONDS (24.8-34.2); PROTHROMBIN TIME 18.7 SECONDS (12.5-14.5)
[2023-10-07 03:14] LABS: LIPASE 89 U/L (12-53)
[2023-10-07 03:15] LABS: CK-MB VALUE MASS < 1.0 NG/ML (<3.6)
[2023-10-07 03:16] LABS: CPK CREATINE PHOSPHOKINASE 23 U/L (34-145); MB/CK RELATIVE INDEX 4.34 (< OR =4)
[2023-10-07 03:17] LABS: ALBUMIN 2.7 G/DL (3.2-5.2); ALKALINE PHOSPHATASE 168 U/L (46-116); ALT/SGPT 41 U/L (7.0-40); AST/SGOT 81 U/L (<34); BILIRUBIN,DIRECT 0.9 MG/DL (<0.4); BILIRUBIN,TOTAL 1.6 MG/DL (0.3-1.2); BLOOD UREA NITROGEN 16 MG/DL (9-23); CALCIUM LEVEL 8.9 MG/DL (8.5-10.1); CARBON DIOXIDE LEVEL 23 MMOL/L (20-31); CHLORIDE LEVEL 102 MMOL/L (98-107); GLOMERULAR FILTRATION RATE > 60.0 (>58); GLUCOSE, FASTING 113 MG/DL (60-100); POTASSIUM SERUM 3.6 MMOL/L (3.5-5.1); SODIUM LEVEL 133 MMOL/L (136-145); TOTAL PROTEIN 6.4 G/DL (5.7-8.2)
[2023-10-07] MEDS ORDERED: ISOVUE-370 76% 100ML VIAL As Ordered ONE (03:50)
[2023-10-07] MEDS: NS 1,000 ML IV ONE (05:10)
[2023-10-07] MEDS: LACTULOSE 20GM/30ML SYRUP UDC PO ONE (05:11)
[2023-10-07] MEDS: fentaNYL 100 MCG/2 ML INJECTION IV ONE (05:11)
[2023-10-07 05:12] LABS: CK-MB VALUE MASS < 1.0 NG/ML (<3.6)
[2023-10-07 05:38] LABS: CPK CREATINE PHOSPHOKINASE 27 U/L (34-145)
[2023-10-07] MEDS ORDERED: SPIR50TA4 PO (06:31)
[2023-10-07] MEDS ORDERED: FURO40TA2 PO (06:31)
[2023-10-07] MEDS ORDERED: OXYC-517 PO (06:31)
[2023-10-07] MEDS ORDERED: GABA-284 PO (06:31)
[2023-10-07] MEDS ORDERED: HOME MED LIST COMPLETE! XX SCH (06:35)
[2023-10-07] MEDS: cefTRIAXone SOD 1 GM in D5W MINI-BAG PLUS 50 ML IV SCH (06:45)
[2023-10-07] MEDS: oxyCODONE 5MG TAB PO PRN (07:16)
[2023-10-07] MEDS: GABAPENTIN 400MG CAP PO SCH (07:42)
[2023-10-07] MEDS: SPIRONOLACTONE 50 MG TAB PO SCH (07:42)
[2023-10-07] MEDS: MAGNESIUM OXIDE 400MG TAB (MAG-OX) PO SCH (07:43)
[2023-10-07] MEDS: FUROSEMIDE 40 MG TAB PO SCH (07:43)
[2023-10-07] MEDS: MIDODRINE 5 MG TAB PO SCH ×2 (07:43→12:05)
[2023-10-07 09:34] LABS: BASO # 0.1 10^3/uL (0.0-0.2); BASO % 0.8 % (0.0-1.0); EOS # 0.3 10^3/uL (0.0-0.5); EOS % 2.2 % (0.0-3.0); HEMATOCRIT 23.8 % (36.0-47.0); HEMOGLOBIN 8.3 g/dl (12.0-15.5); LYMPH # 2.5 10^3/uL (1.5-5.0); LYMPH % 21.4 % (24.0-44.0); MEAN CORPUSCULAR HGB CONC 34.9 g/dl (32.0-36.5); MEAN CORPUSCULAR VOLUME 91.9 fl (80.0-96.0); MONO # 1.1 10^3/uL (0.0-0.8); MONO % 9.3 % (2.0-8.0); NEUTROPHILS # 7.8 10^3/uL (1.5-8.5); NEUTROPHILS % 65.6 % (36.0-66.0); PLATELET COUNT, AUTOMATED 123 10^3/uL (150-450); RED BLOOD COUNT 2.59 10^6/uL (4.00-5.40); WHITE BLOOD COUNT 11.8 10^3/uL (4.0-10.0)
[2023-10-07 09:40] LABS: ERYTHROCYTE SEDIMENTATION RATE 51 mm/hr (0-20)
[2023-10-07] MEDS ORDERED: MIDODRINE 5 MG TAB PO ONE (09:45)
[2023-10-07] MEDS: MIDODRINE 5 MG TAB PO ONE (10:00)
[2023-10-07] MEDS: ONDANSETRON 4MG 2ML VIAL IV ONE (10:01)
[2023-10-07] MEDS: KETOROLAC 30 MG/ML 1ML VIAL IV ONE (10:01)
[2023-10-07 10:12] LABS: C REACTIVE PROTEIN QUANTITATIV 0.6 MG/DL (<1.0)
[2023-10-07 10:13] LABS: PROCALCITONIN 0.15 ng/ml
[2023-10-07] MEDS: LACTULOSE 20GM/30ML SYRUP UDC PO SCH (12:05)
[2023-10-07 14:49] VITALS: BP 102/60; TEMP 97.9; O2SAT 100
[2023-10-07 16:43] VITALS: BP 100/58
[2023-10-07 20:26] VITALS: BP 132/69; TEMP 98.2; O2SAT 98
[2023-10-07] MEDS: ENOXAPARIN 40MG/0.4ML SYRINGE (J1650 PER 10MG) SC SCH (20:48)
[2023-10-07] MEDS ORDERED: LACTULOSE 20GM/30ML SYRUP UDC PO SCH (21:00)
[2023-10-07] MEDS ORDERED: traZODone 50 MG TAB PO SCH (21:00)
[2023-10-08] VITALS (8 sets, daily range): BP systolic 107–126; BP diastolic 56–78; TEMP 98–98.8; O2SAT 96–99
[2023-10-08] MEDS: LACTULOSE 20GM/30ML SYRUP UDC PO SCH ×3 (05:23→13:36)
[2023-10-08] MEDS ORDERED: LORazepam 2 MG TAB PO PRN (08:35)
[2023-10-08] MEDS: THIAMINE 100 MG TAB PO SCH (08:52)
[2023-10-08] MEDS: FOLIC ACID 1MG TAB PO SCH (08:53)
[2023-10-08] MEDS: MULTIVITAMINS/MINERALS THERAP 1 TAB PO SCH (08:53)
[2023-10-08 10:47] LABS: HEMATOCRIT 24.2 % (36.0-47.0); HEMOGLOBIN 8.4 g/dl (12.0-15.5); MEAN CORPUSCULAR HEMOGLOBIN 32.6 pg (27.0-33.0); MEAN CORPUSCULAR HGB CONC 34.7 g/dl (32.0-36.5); MEAN CORPUSCULAR VOLUME 93.8 fl (80.0-96.0); PLATELET COUNT, AUTOMATED 122 10^3/uL (150-450); RED BLOOD COUNT 2.58 10^6/uL (4.00-5.40); WHITE BLOOD COUNT 11.1 10^3/uL (4.0-10.0)
[2023-10-08 11:25] LABS: ALBUMIN 2.8 G/DL (3.2-5.2); ALKALINE PHOSPHATASE 129 U/L (46-116); ALT/SGPT 42 U/L (7.0-40); AST/SGOT 80 U/L (<34); BILIRUBIN,TOTAL 1.8 MG/DL (0.3-1.2); BLOOD UREA NITROGEN 14 MG/DL (9-23); CARBON DIOXIDE LEVEL 20 MMOL/L (20-31); CHLORIDE LEVEL 102 MMOL/L (98-107); CREATININE FOR GFR 0.76 MG/DL (0.55-1.30); GLOMERULAR FILTRATION RATE > 60.0 (>58); GLUCOSE, FASTING 123 MG/DL (60-100); MAGNESIUM LEVEL 1.7 MG/DL (1.8-2.4); POTASSIUM SERUM 3.4 MMOL/L (3.5-5.1); SODIUM LEVEL 134 MMOL/L (136-145); TOTAL PROTEIN 6.5 G/DL (5.7-8.2)
[2023-10-08] MEDS ORDERED: LACTULOSE 20GM/30ML SYRUP UDC PR ONE (12:00)
[2023-10-08] MEDS: MAGNESIUM OXIDE 400MG TAB (MAG-OX) PO ONE (12:34)
[2023-10-08] MEDS: POTASSIUM CHLORIDE 10MEQ SR TABLET PO ONE (12:34)
[2023-10-08] MEDS: MAALOX 30 ML SUSP *UDC PO ONE (18:32)
[2023-10-08] MEDS: POTASSIUM CHLORIDE 10MEQ SR TABLET PO SCH (22:39)
[2023-10-08] MEDS: MAALOX 30 ML SUSP *UDC PO PRN (22:45)
[2023-10-09] VITALS (19 sets, daily range): BP systolic 106–128; BP diastolic 57–87; TEMP 97.7–98.2; O2SAT 95–100
[2023-10-09] MEDS: LACTULOSE 20GM/30ML SYRUP UDC PO ONE (02:13)
[2023-10-09] MEDS ORDERED: GLUCAGON INJ 1MG VIAL SC PRN (10:05)
[2023-10-09] MEDS ORDERED: OCTREOTIDE ACETATE 100MCG/ML VIAL **IV ADMINISTRATION ONLY IV SCH (10:05)
[2023-10-09] MEDS ORDERED: cefTRIAXone SOD 1 GM in D5W MINI-BAG PLUS 50 ML IV SCH (10:05)
[2023-10-09] MEDS ORDERED: DEXTROSE 50% 50ML SYRINGE IV PRN (10:05)
[2023-10-09] MEDS ORDERED: GLUCOSE 4GM CHEW TABLET PO PRN (10:05)
[2023-10-09] MEDS: PANTOPRAZOLE 40MG VIAL IV ONE (10:42)
[2023-10-09] MEDS: PANTOPRAZOLE SODIUM 40 MG in D5W 50 ML IV SCH (11:53)
[2023-10-09] MEDS: OCTREOTIDE ACETATE 100MCG/ML VIAL **IV ADMINISTRATION ONLY IV ONE (12:08)
[2023-10-09 12:13] LABS: HEMATOCRIT 22.9 % (36.0-47.0); HEMOGLOBIN 7.8 g/dl (12.0-15.5)
[2023-10-09] MEDS: ONDANSETRON 4MG 2ML VIAL IV PRN (12:24)
[2023-10-09 12:27] LABS: INR 1.49; PARTIAL THROMBOPLASTIN TIME 41.4 SECONDS (24.8-34.2); PROTHROMBIN TIME 17.5 SECONDS (12.5-14.5)
[2023-10-09] MEDS ORDERED: PHENYLephrine 500MCG 5ML (100MCG/ML) SYRINGE As Ordered ONE (14:10)
[2023-10-09] MEDS ORDERED: SUCCINYLCHOLINE 100MG/5ML SYRINGE As Ordered ONE (14:10)
[2023-10-09] MEDS ORDERED: propofoL 200 MG/20 ML VIAL As Ordered ONE (14:10)
[2023-10-09] MEDS ORDERED: ONDANSETRON 4MG 2ML VIAL As Ordered ONE (14:10)
[2023-10-09] MEDS ORDERED: fentaNYL 100 MCG/2 ML INJECTION As Ordered ONE (14:10)
[2023-10-09] MEDS ORDERED: LIDOCAINE 2% 100MG/5ML SDV (FOR ANES.) As Ordered ONE (14:10)
[2023-10-09] MEDS ORDERED: ROCURONIUM BROMIDE 50MG/5ML VIAL As Ordered ONE (14:10)
[2023-10-09] MEDS ORDERED: ePHEDrine SULFATE 25 MG/5 ML(5MG/ML) SYRINGE As Ordered ONE (14:11)
[2023-10-09] MEDS: OCTREOTIDE ACETATE 1,200 MCG in NS 238.8 ML IV SCH (15:31)
[2023-10-09 15:33] LABS: BASO # 0.1 10^3/uL (0.0-0.2); BASO % 1.1 % (0.0-1.0); EOS # 0.2 10^3/uL (0.0-0.5); EOS % 3.1 % (0.0-3.0); HEMATOCRIT 24.5 % (36.0-47.0); HEMOGLOBIN 8.4 g/dl (12.0-15.5); LYMPH # 1.4 10^3/uL (1.5-5.0); LYMPH % 22.5 % (24.0-44.0); MEAN CORPUSCULAR HEMOGLOBIN 32.7 pg (27.0-33.0); MEAN CORPUSCULAR HGB CONC 34.3 g/dl (32.0-36.5); MEAN CORPUSCULAR VOLUME 95.3 fl (80.0-96.0); MONO # 0.3 10^3/uL (0.0-0.8); MONO % 4.5 % (2.0-8.0); NEUTROPHILS # 4.2 10^3/uL (1.5-8.5); NEUTROPHILS % 68.2 % (36.0-66.0); PLATELET COUNT, AUTOMATED 125 10^3/uL (150-450); RED BLOOD COUNT 2.57 10^6/uL (4.00-5.40); WHITE BLOOD COUNT 6.2 10^3/uL (4.0-10.0)
[2023-10-09 15:47] LABS: INR 1.46; PARTIAL THROMBOPLASTIN TIME 41.4 SECONDS (24.8-34.2); PROTHROMBIN TIME 17.3 SECONDS (12.5-14.5)
[2023-10-09 15:57] LABS: PERCENT SATURATION 25.5 % (13.2-45.0)
[2023-10-09 15:58] LABS: ALBUMIN 2.8 G/DL (3.2-5.2); ALKALINE PHOSPHATASE 111 U/L (46-116); ALT/SGPT 41 U/L (7.0-40); AST/SGOT 82 U/L (<34); BLOOD UREA NITROGEN 10 MG/DL (9-23); CARBON DIOXIDE LEVEL 23 MMOL/L (20-31); CHLORIDE LEVEL 103 MMOL/L (98-107); CREATININE FOR GFR 0.67 MG/DL (0.55-1.30); GLOMERULAR FILTRATION RATE > 60.0 (>58); GLUCOSE, FASTING 111 MG/DL (60-100); POTASSIUM SERUM 4.3 MMOL/L (3.5-5.1); SODIUM LEVEL 135 MMOL/L (136-145); TOTAL PROTEIN 6.4 G/DL (5.7-8.2)
[2023-10-09] MEDS: MORPHINE 10 MG/ML 1ML VIAL IV ONE (17:22)
[2023-10-09 18:29] LABS: HEMATOCRIT 23.2 % (36.0-47.0); HEMOGLOBIN 7.8 g/dl (12.0-15.5)
[2023-10-09] MEDS: LACTULOSE 20GM/30ML SYRUP UDC PR ONE (20:09)
[2023-10-09] MEDS: MULTIVITAMIN -ADULT INJECTION 10 ML, THIAMINE INJection 100 MG, FOLIC ACID 1 MG in NS 1... IV ONE (21:23)
[2023-10-09] MEDS: MORPHINE 4 MG/ML 1ML VIAL IV PRN (21:40)
[2023-10-09] MEDS: KCL 10MEQ/100ML SWI (KRUN) 10 MEQ in IV 1 EA IV ONE (22:34)
[2023-10-09] MEDS: MAG SULF 1GM/100ML (MAG RUN) 1 GM in IV 1 EA IV SCH (23:02)
[2023-10-10 00:23] LABS: HEMATOCRIT 26.7 % (36.0-47.0); MEAN CORPUSCULAR HEMOGLOBIN 31.7 pg (27.0-33.0); MEAN CORPUSCULAR HGB CONC 33.7 g/dl (32.0-36.5); PLATELET COUNT, AUTOMATED 111 10^3/uL (150-450); RED BLOOD COUNT 2.84 10^6/uL (4.00-5.40); WHITE BLOOD COUNT 5.6 10^3/uL (4.0-10.0)
[2023-10-10 00:30] VITALS: BP 124/73; TEMP 98.1; O2SAT 98
[2023-10-10 04:30] VITALS: BP 113/56; TEMP 98.1; O2SAT 98
[2023-10-10 06:42] LABS: HEMATOCRIT 25.5 % (36.0-47.0); HEMOGLOBIN 8.8 g/dl (12.0-15.5)
[2023-10-10 12:33] LABS: HEMATOCRIT 25.2 % (36.0-47.0); HEMOGLOBIN 8.8 g/dl (12.0-15.5)
[2023-10-10 13:30] VITALS: BP 117/64; TEMP 97.9; O2SAT 98
[2023-10-10 17:30] VITALS: BP 114/62; TEMP 98.2; O2SAT 97
[2023-10-10 20:30] VITALS: BP 118/63; TEMP 98.1; O2SAT 98
[2023-10-11 00:20] LABS: HEMATOCRIT 25.7 % (36.0-47.0); HEMOGLOBIN 8.8 g/dl (12.0-15.5)
[2023-10-11 05:12] LABS: HEMATOCRIT 25.6 % (36.0-47.0); HEMOGLOBIN 8.7 g/dl (12.0-15.5)
[2023-10-11 05:34] VITALS: BP 104/57; TEMP 98.1; O2SAT 97
[2023-10-11 09:58] LABS: BASO # 0.1 10^3/uL (0.0-0.2); BASO % 0.4 % (0.0-1.0); EOS # 0.1 10^3/uL (0.0-0.5); EOS % 0.5 % (0.0-3.0); HEMATOCRIT 27.2 % (36.0-47.0); HEMOGLOBIN 9.2 g/dl (12.0-15.5); LYMPH # 2.4 10^3/uL (1.5-5.0); LYMPH % 19.7 % (24.0-44.0); MEAN CORPUSCULAR HEMOGLOBIN 31.8 pg (27.0-33.0); MEAN CORPUSCULAR HGB CONC 33.8 g/dl (32.0-36.5); MEAN CORPUSCULAR VOLUME 94.1 fl (80.0-96.0); MONO # 0.8 10^3/uL (0.0-0.8); MONO % 6.4 % (2.0-8.0); NEUTROPHILS # 8.6 10^3/uL (1.5-8.5); NEUTROPHILS % 72.2 % (36.0-66.0); PLATELET COUNT, AUTOMATED 149 10^3/uL (150-450); RED BLOOD COUNT 2.89 10^6/uL (4.00-5.40); WHITE BLOOD COUNT 11.9 10^3/uL (4.0-10.0)
[2023-10-11 10:00] VITALS: BP 104/57; TEMP 98.2; O2SAT 98
[2023-10-11 10:36] LABS: ALBUMIN 2.6 G/DL (3.2-5.2); ALKALINE PHOSPHATASE 103 U/L (46-116); ALT/SGPT 37 U/L (7.0-40); AST/SGOT 56 U/L (<34); BILIRUBIN,TOTAL 1.6 MG/DL (0.3-1.2); BLOOD UREA NITROGEN 16 MG/DL (9-23); CALCIUM LEVEL 8.8 MG/DL (8.5-10.1); CARBON DIOXIDE LEVEL 23 MMOL/L (20-31); CHLORIDE LEVEL 103 MMOL/L (98-107); CREATININE FOR GFR 0.67 MG/DL (0.55-1.30); GLOMERULAR FILTRATION RATE > 60.0 (>58); GLUCOSE, FASTING 133 MG/DL (60-100); POTASSIUM SERUM 4.8 MMOL/L (3.5-5.1); SODIUM LEVEL 133 MMOL/L (136-145); TOTAL PROTEIN 6.2 G/DL (5.7-8.2)
[2023-10-11] MEDS: LACTULOSE 20GM/30ML SYRUP UDC PO SCH (10:45)
[2023-10-11] MEDS: SUCRALFATE SUSP 1GM/10ML UD PO SCH (13:15)
[2023-10-11 14:00] VITALS: BP 104/55; TEMP 97.9; O2SAT 99
[2023-10-11 18:00] VITALS: BP 106/65; TEMP 97.9; O2SAT 98
[2023-10-11] MEDS: PANTOPRAZOLE 40MG TAB (PROTONIX) PO SCH (20:48)
[2023-10-11 20:49] VITALS: BP 111/62; TEMP 97.9; O2SAT 98
[2023-10-12 05:14] VITALS: BP 100/52; TEMP 98.1; O2SAT 96
[2023-10-12 06:32] LABS: BASO # 0.1 10^3/uL (0.0-0.2); BASO % 0.6 % (0.0-1.0); EOS # 0.2 10^3/uL (0.0-0.5); EOS % 2.4 % (0.0-3.0); HEMATOCRIT 26.1 % (36.0-47.0); HEMOGLOBIN 8.8 g/dl (12.0-15.5); LYMPH # 3.4 10^3/uL (1.5-5.0); MEAN CORPUSCULAR HEMOGLOBIN 31.5 pg (27.0-33.0); MEAN CORPUSCULAR HGB CONC 33.7 g/dl (32.0-36.5); MEAN CORPUSCULAR VOLUME 93.5 fl (80.0-96.0); MONO # 1.1 10^3/uL (0.0-0.8); MONO % 11.1 % (2.0-8.0); NEUTROPHILS # 4.8 10^3/uL (1.5-8.5); NEUTROPHILS % 50.5 % (36.0-66.0); PLATELET COUNT, AUTOMATED 138 10^3/uL (150-450); RED BLOOD COUNT 2.79 10^6/uL (4.00-5.40); WHITE BLOOD COUNT 9.6 10^3/uL (4.0-10.0)
[2023-10-12 06:58] LABS: ALBUMIN 2.3 G/DL (3.2-5.2); ALKALINE PHOSPHATASE 106 U/L (46-116); ALT/SGPT 40 U/L (7.0-40); AST/SGOT 58 U/L (<34); BILIRUBIN,TOTAL 1.2 MG/DL (0.3-1.2); BLOOD UREA NITROGEN 14 MG/DL (9-23); CALCIUM LEVEL 8.7 MG/DL (8.5-10.1); CARBON DIOXIDE LEVEL 24 MMOL/L (20-31); CHLORIDE LEVEL 101 MMOL/L (98-107); CREATININE FOR GFR 0.69 MG/DL (0.55-1.30); GLOMERULAR FILTRATION RATE > 60.0 (>58); GLUCOSE, FASTING 103 MG/DL (60-100); POTASSIUM SERUM 4.4 MMOL/L (3.5-5.1); SODIUM LEVEL 132 MMOL/L (136-145); TOTAL PROTEIN 5.7 G/DL (5.7-8.2)
[2023-10-12] MEDS: CEFDINIR 300 MG CAP (OMNICEF) PO SCH (09:11)
[2023-10-12 09:15] VITALS: BP 123/71
[2023-10-12 10:00] VITALS: BP 110/60; TEMP 98.1; O2SAT 96
[2023-10-12 14:00] VITALS: BP 106/55; TEMP 97.9; O2SAT 97
[2023-10-12] MEDS ORDERED: PILL CUTTER 1 EACH XX ONE (15:00)
[2023-10-12] MEDS: MORPHINE 30 MG TAB **MSIR PO PRN (15:09)
[2023-10-12 18:00] VITALS: BP 104/53; TEMP 98.1; O2SAT 98
[2023-10-12 21:00] VITALS: BP 104/52; TEMP 98.1; O2SAT 96
[2023-10-13 02:04] VITALS: BP 112/59; TEMP 97.9; O2SAT 98
[2023-10-13 05:44] VITALS: BP 91/55; TEMP 98.1; O2SAT 98
[2023-10-13 06:30] LABS: BASO # 0.1 10^3/uL (0.0-0.2); BASO % 0.9 % (0.0-1.0); EOS # 0.3 10^3/uL (0.0-0.5); EOS % 2.9 % (0.0-3.0); HEMATOCRIT 26.8 % (36.0-47.0); HEMOGLOBIN 9.1 g/dl (12.0-15.5); LYMPH # 3.9 10^3/uL (1.5-5.0); LYMPH % 45.5 % (24.0-44.0); MEAN CORPUSCULAR HEMOGLOBIN 31.1 pg (27.0-33.0); MEAN CORPUSCULAR VOLUME 91.5 fl (80.0-96.0); MONO # 0.8 10^3/uL (0.0-0.8); MONO % 9.7 % (2.0-8.0); NEUTROPHILS # 3.5 10^3/uL (1.5-8.5); NEUTROPHILS % 40.5 % (36.0-66.0); PLATELET COUNT, AUTOMATED 137 10^3/uL (150-450); RED BLOOD COUNT 2.93 10^6/uL (4.00-5.40); WHITE BLOOD COUNT 8.6 10^3/uL (4.0-10.0)
[2023-10-13 06:38] VITALS: BP 90/70
[2023-10-13 06:53] LABS: ALBUMIN 2.3 G/DL (3.2-5.2); ALKALINE PHOSPHATASE 120 U/L (46-116); ALT/SGPT 40 U/L (7.0-40); AST/SGOT 54 U/L (<34); BILIRUBIN,TOTAL 1.1 MG/DL (0.3-1.2); BLOOD UREA NITROGEN 12 MG/DL (9-23); CALCIUM LEVEL 8.6 MG/DL (8.5-10.1); CARBON DIOXIDE LEVEL 25 MMOL/L (20-31); CHLORIDE LEVEL 106 MMOL/L (98-107); CREATININE FOR GFR 0.63 MG/DL (0.55-1.30); GLOMERULAR FILTRATION RATE > 60.0 (>58); GLUCOSE, FASTING 121 MG/DL (60-100); POTASSIUM SERUM 4.1 MMOL/L (3.5-5.1); SODIUM LEVEL 139 MMOL/L (136-145); TOTAL PROTEIN 5.5 G/DL (5.7-8.2)
[2023-10-13 10:00] VITALS: BP 107/50; TEMP 97.9; O2SAT 98
[2023-10-13] MEDS ORDERED: CEFD300CAP PO (13:37)
[2023-10-13] MEDS ORDERED: MIDO5TA PO (13:37)
[2023-10-13] MEDS ORDERED: SUCR1ORA PO (13:37)
[2023-10-13 14:00] VITALS: BP 113/53; TEMP 98.1; O2SAT 96
[2023-10-13 16:09] LABS: ANCA-ATYPICAL <1:20 titer (Neg:<1:20); ANTI-MITOCHONDRIAL ANTIBODY <20.0 Units (0.0-20.0); ANTINUCLEAR ANTIBODIES DIRECT Negative (Negative); CYTOPLASMIC NEUTROP AB ANCA-C <1:20 titer (Neg:<1:20); LIVER-KIDNEY MICROSOMAL ABY <20.1 Units (0.0-20.0); PERINUCLEAR AB ANCA-P <1:20 titer (Neg:<1:20); TISSUE TRANSGLUTAMINASE IgA <2 U/mL (0-3)
[2023-10-14] MEDS ORDERED: VENL1TAB35 PO (20:27)
== END 2023-10-13 16:02 | disposition home or self-care (01) | DRG 280 ==
LOC: M ED 01:02 → M ED INP 05:51 → ENRESERV 13:59 → M MSPAV 14:53
PROVIDERS: ADMIT Preventive Medicine Undersea and Hyperbaric Medicine; ATTEND Hospitalist
PROC: 0W3P8ZZ Control Bleeding in Gastrointestinal Tract, Via Natural or Artificial Opening Endoscopic (ICD-10-PCS; 2023-10-09)
PROC: 30233N1 Transfusion of Nonautologous Red Blood Cells into Peripheral Vein, Percutaneous Approach (ICD-10-PCS; 2023-10-09)
PROC: 30233K1 Transfusion of Nonautologous Frozen Plasma into Peripheral Vein, Percutaneous Approach (ICD-10-PCS; 2023-10-09)
PROC: 06L38CZ Occlusion of Esophageal Vein with Extraluminal Device, Via Natural or Artificial Opening Endoscopic (ICD-10-PCS; principal; 2023-10-09 12:57)
DX: K70.31 Alcoholic cirrhosis of liver with ascites (principal); I85.01 Esophageal varices with bleeding; K92.0 Hematemesis; R64 Cachexia; D68.9 Coagulation defect, unspecified; D62 Acute posthemorrhagic anemia; E87.1 Hypo-osmolality and hyponatremia; I95.9 Hypotension, unspecified; D69.6 Thrombocytopenia, unspecified; K76.82 Hepatic encephalopathy; E83.42 Hypomagnesemia; E87.6 Hypokalemia; K59.00 Constipation, unspecified; Z88.8 Allergy status to other drugs, medicaments and biological substances; Z79.899 Other long term (current) drug therapy; M93.951 Osteochondropathy, unspecified, right thigh; Z88.2 Allergy status to sulfonamides; Z99.3 Dependence on wheelchair; M93.952 Osteochondropathy, unspecified, left thigh; K92.1 Melena

== ENCOUNTER 2023-10-14 15:30 | Inpatient (IN) | payer MEDICAID, OTHER ==
[~2023-10-14] VITALS: Ht 170.2 cm; Wt 64.3 kg
[~2023-10-14 15:30] MED LIST changes: +SPIR50TA4 PO; +SUCR1ORA PO
[2023-10-14 16:38] VITALS: BP 111/58; TEMP 97.6; O2SAT 100
[2023-10-14] MEDS ORDERED: OCTREOTIDE ACETATE 100MCG/ML VIAL **IV ADMINISTRATION ONLY IV SCH (17:40)
[2023-10-14] MEDS: MORPHINE 2 MG/ML 1ML VIAL IV PRN (17:51)
[2023-10-14 18:18] LABS: INR 1.44; PROTHROMBIN TIME 17.1 SECONDS (12.5-14.5)
[2023-10-14 18:19] LABS: BASO # 0.1 10^3/uL (0.0-0.2); BASO % 0.7 % (0.0-1.0); EOS # 0.2 10^3/uL (0.0-0.5); EOS % 2.1 % (0.0-3.0); HEMATOCRIT 29.3 % (36.0-47.0); HEMOGLOBIN 9.8 g/dl (12.0-15.5); LYMPH # 2.2 10^3/uL (1.5-5.0); LYMPH % 31.4 % (24.0-44.0); MEAN CORPUSCULAR HEMOGLOBIN 31.2 pg (27.0-33.0); MEAN CORPUSCULAR HGB CONC 33.4 g/dl (32.0-36.5); MEAN CORPUSCULAR VOLUME 93.3 fl (80.0-96.0); MONO # 0.5 10^3/uL (0.0-0.8); MONO % 7.1 % (2.0-8.0); NEUTROPHILS # 4.1 10^3/uL (1.5-8.5); NEUTROPHILS % 58.1 % (36.0-66.0); PLATELET COUNT, AUTOMATED 145 10^3/uL (150-450); RED BLOOD COUNT 3.14 10^6/uL (4.00-5.40); WHITE BLOOD COUNT 7.1 10^3/uL (4.0-10.0)
[2023-10-14 18:48] LABS: PROCALCITONIN 0.05 ng/ml
[2023-10-14 18:50] LABS: ALBUMIN 2.6 G/DL (3.2-5.2); ALKALINE PHOSPHATASE 101 U/L (46-116); ALT/SGPT 39 U/L (7.0-40); AST/SGOT 51 U/L (<34); BILIRUBIN,TOTAL 1.4 MG/DL (0.3-1.2); BLOOD UREA NITROGEN 11 MG/DL (9-23); CARBON DIOXIDE LEVEL 24 MMOL/L (20-31); CHLORIDE LEVEL 104 MMOL/L (98-107); CREATININE FOR GFR 0.59 MG/DL (0.55-1.30); GLOMERULAR FILTRATION RATE > 60.0 (>58); GLUCOSE, FASTING 110 MG/DL (60-100); POTASSIUM SERUM 3.8 MMOL/L (3.5-5.1); SODIUM LEVEL 136 MMOL/L (136-145); TOTAL PROTEIN 6.2 G/DL (5.7-8.2)
[2023-10-14 18:51] VITALS: BP 100/59; TEMP 98.1; O2SAT 98
[2023-10-14] MEDS ORDERED: VENL1TAB35 PO (20:27)
[2023-10-14] MEDS ORDERED: HOME MED LIST COMPLETE! XX SCH (20:30)
[2023-10-14] MEDS: PANTOPRAZOLE 40MG VIAL IV SCH (20:55)
[2023-10-14] MEDS: LACTULOSE 20GM/30ML SYRUP UDC PO SCH (21:56)
[2023-10-14] MEDS: cefTRIAXone SOD 1 GM in D5W MINI-BAG PLUS 50 ML IV SCH (21:56)
[2023-10-14] MEDS: traZODone 50 MG TAB PO SCH (21:56)
[2023-10-14] MEDS: OCTREOTIDE ACETATE 1,200 MCG in NS 238.8 ML IV SCH (21:57)
[2023-10-14] MEDS: GABAPENTIN 400MG CAP PO SCH (21:57)
[2023-10-14] MEDS: OCTREOTIDE ACETATE 100MCG/ML VIAL **IV ADMINISTRATION ONLY IV ONE (21:59)
[2023-10-14 22:35] LABS: HEMATOCRIT 26.1 % (36.0-47.0); HEMOGLOBIN 8.9 g/dl (12.0-15.5)
[2023-10-14] MEDS: SUCRALFATE SUSP 1GM/10ML UD PO SCH (23:59)
[2023-10-15] VITALS (12 sets, daily range): BP systolic 80–123; BP diastolic 30–82; TEMP 97.2–98.2; O2SAT 93–100
[2023-10-15] MEDS: MIDODRINE 5 MG TAB PO STA (03:48)
[2023-10-15] MEDS: SODIUM CHLORIDE 0.9% 1000ML IV ONE (03:53)
[2023-10-15 04:38] LABS: BASO # 0.1 10^3/uL (0.0-0.2); BASO % 0.8 % (0.0-1.0); EOS # 0.2 10^3/uL (0.0-0.5); EOS % 2.3 % (0.0-3.0); HEMATOCRIT 24.2 % (36.0-47.0); HEMOGLOBIN 8.3 g/dl (12.0-15.5); LYMPH # 2.7 10^3/uL (1.5-5.0); LYMPH % 35.4 % (24.0-44.0); MEAN CORPUSCULAR HEMOGLOBIN 31.7 pg (27.0-33.0); MEAN CORPUSCULAR HGB CONC 34.3 g/dl (32.0-36.5); MEAN CORPUSCULAR VOLUME 92.4 fl (80.0-96.0); MONO # 0.6 10^3/uL (0.0-0.8); MONO % 7.9 % (2.0-8.0); NEUTROPHILS % 53.5 % (36.0-66.0); PLATELET COUNT, AUTOMATED 125 10^3/uL (150-450); RED BLOOD COUNT 2.62 10^6/uL (4.00-5.40); WHITE BLOOD COUNT 7.5 10^3/uL (4.0-10.0)
[2023-10-15 04:58] LABS: BLOOD UREA NITROGEN 8 MG/DL (9-23); CALCIUM LEVEL 8.3 MG/DL (8.5-10.1); CARBON DIOXIDE LEVEL 26 MMOL/L (20-31); CHLORIDE LEVEL 105 MMOL/L (98-107); CREATININE FOR GFR 0.58 MG/DL (0.55-1.30); GLOMERULAR FILTRATION RATE > 60.0 (>58); GLUCOSE, FASTING 137 MG/DL (60-100); POTASSIUM SERUM 3.5 MMOL/L (3.5-5.1); SODIUM LEVEL 136 MMOL/L (136-145)
[2023-10-15] MEDS: MIDODRINE 5 MG TAB PO SCH (08:31)
[2023-10-15] MEDS: VENLAFAXINE 25 MG TAB PO SCH (08:32)
[2023-10-15 12:01] LABS: HEMATOCRIT 25.5 % (36.0-47.0); HEMOGLOBIN 8.6 g/dl (12.0-15.5)
[2023-10-15 18:05] LABS: HEMATOCRIT 26.5 % (36.0-47.0)
[2023-10-15] MEDS: GABAPENTIN 300 MG CAP PO SCH (18:21)
[2023-10-15] MEDS: MORPHINE 2 MG/ML 1ML VIAL IV PRN (21:42)
[2023-10-16] VITALS: BP 91/50; TEMP 99.4; O2SAT 96
[2023-10-16] MEDS: LACTULOSE 20GM/30ML SYRUP UDC PO SCH
[2023-10-16 02:38] VITALS: BP 105/52
[2023-10-16 03:54] LABS: BASO # 0.1 10^3/uL (0.0-0.2); BASO % 0.8 % (0.0-1.0); EOS # 0.2 10^3/uL (0.0-0.5); HEMATOCRIT 26.2 % (36.0-47.0); HEMOGLOBIN 8.8 g/dl (12.0-15.5); LYMPH # 2.2 10^3/uL (1.5-5.0); LYMPH % 25.9 % (24.0-44.0); MEAN CORPUSCULAR HEMOGLOBIN 31.8 pg (27.0-33.0); MEAN CORPUSCULAR HGB CONC 33.6 g/dl (32.0-36.5); MEAN CORPUSCULAR VOLUME 94.6 fl (80.0-96.0); MONO # 0.8 10^3/uL (0.0-0.8); NEUTROPHILS # 5.1 10^3/uL (1.5-8.5); NEUTROPHILS % 60.9 % (36.0-66.0); PLATELET COUNT, AUTOMATED 117 10^3/uL (150-450); RED BLOOD COUNT 2.77 10^6/uL (4.00-5.40); WHITE BLOOD COUNT 8.4 10^3/uL (4.0-10.0)
[2023-10-16 04:00] VITALS: BP 100/52; TEMP 97.8; O2SAT 96
[2023-10-16 04:22] LABS: BLOOD UREA NITROGEN 8 MG/DL (9-23); CALCIUM LEVEL 8.1 MG/DL (8.5-10.1); CARBON DIOXIDE LEVEL 22 MMOL/L (20-31); CHLORIDE LEVEL 107 MMOL/L (98-107); CREATININE FOR GFR 0.56 MG/DL (0.55-1.30); GLOMERULAR FILTRATION RATE > 60.0 (>58); GLUCOSE, FASTING 134 MG/DL (60-100); POTASSIUM SERUM 3.7 MMOL/L (3.5-5.1); SODIUM LEVEL 137 MMOL/L (136-145)
[2023-10-16 07:31] VITALS: BP_SYST 87; BP_SYST 93; BP_SYST 94; BP_DIAS 53; BP_DIAS 54; BP_DIAS 56; TEMP 98.3; O2SAT 97
[2023-10-16] MEDS: oxyCODONE 5MG TAB PO PRN (10:42)
[2023-10-16] MEDS ORDERED: VENL1TAB35 PO (11:22)
[2023-10-16] MEDS ORDERED: SUCR1TA PO (11:22)
[2023-10-16] MEDS ORDERED: GABA-282 PO (11:22)
[2023-10-16] MEDS ORDERED: MAGN400T2 PO (11:22)
[2023-10-16] MEDS ORDERED: SPIR50TA4 PO (11:22)
[2023-10-16] MEDS ORDERED: OMEP1CAP73 PO (11:22)
[2023-10-16] MEDS ORDERED: TRAZ-252 PO (11:22)
[2023-10-16] MEDS ORDERED: LASI20TA3 PO (11:22)
[2023-10-16] MEDS ORDERED: LACT20EL PO (11:22)
[2023-10-16] MEDS ORDERED: MIDO5TA PO (11:22)
== END 2023-10-16 16:35 | disposition home or self-care (01) | DRG 242 ==
LOC: M ED INP 16:06 → M PCU 16:26
PROVIDERS: ADMIT Internal Medicine; ATTEND Internal Medicine
DX: I85.01 Esophageal varices with bleeding (principal); I95.89 Other hypotension; K76.6 Portal hypertension; D69.6 Thrombocytopenia, unspecified; I27.20 Pulmonary hypertension, unspecified; M34.9 Systemic sclerosis, unspecified; M87.851 Other osteonecrosis, right femur; M87.852 Other osteonecrosis, left femur; K70.30 Alcoholic cirrhosis of liver without ascites; R26.89 Other abnormalities of gait and mobility; F32.A Depression, unspecified; I10 Essential (primary) hypertension; E78.5 Hyperlipidemia, unspecified; Z90.79 Acquired absence of other genital organ(s); Z79.891 Long term (current) use of opiate analgesic; Z79.899 Other long term (current) drug therapy; Z88.2 Allergy status to sulfonamides; Z88.8 Allergy status to other drugs, medicaments and biological substances

== ENCOUNTER → 2023-11-24 | Outpatient (CLI) | payer OTHER ==
[~2023-11-24] MED LIST changes: +PROHANCE 279.3MG/ML 15ML VIAL ONE; +SUCR1TA PO
== END ==
LOC: M PLAIMG 07:54
PROVIDERS: ATTEND Internal Medicine Gastroenterology
DX: D37.6 Neoplasm of uncertain behavior of liver, gallbladder and bile ducts (principal); K74.60 Unspecified cirrhosis of liver; R93.2 Abnormal findings on diagnostic imaging of liver and biliary tract
CPT/HCPCS: 74183; A9576

== ENCOUNTER → 2023-11-25 | Day surgery (SDC) | payer OTHER ==
[~2023-11-25] VITALS: Ht 170.2 cm; Wt 63.6 kg
[~2023-11-25] MED LIST changes: -PROHANCE 279.3MG/ML 15ML VIAL ONE; +fentaNYL 100 MCG/2 ML INJECTION As Ordered ONE
[2023-11-25] MEDS: NS 1,000 ML IV ONE (10:37)
[2023-11-25 12:03] VITALS: TEMP 97.6
[2023-11-25 12:20] VITALS: BP 108/63; O2SAT 97
== END | disposition home or self-care (01) ==
LOC: M OPP 10:27
PROVIDERS: ATTEND Internal Medicine Gastroenterology
DX: I85.00 Esophageal varices without bleeding (principal); K31.89 Other diseases of stomach and duodenum; K76.6 Portal hypertension; G47.9 Sleep disorder, unspecified; F17.200 Nicotine dependence, unspecified, uncomplicated; Z79.891 Long term (current) use of opiate analgesic; Z79.899 Other long term (current) drug therapy; Z88.2 Allergy status to sulfonamides
CPT/HCPCS: 43235; J3010

== ENCOUNTER → 2024-04-20 | Outpatient (CLI) | payer OTHER ==
[~2024-04-20] MED LIST changes: +GABA-1172 PO; -GABA-282 PO; -fentaNYL 100 MCG/2 ML INJECTION As Ordered ONE
== END ==
LOC: M PLARAD 09:03
PROVIDERS: ATTEND Internal Medicine Gastroenterology
DX: D37.6 Neoplasm of uncertain behavior of liver, gallbladder and bile ducts (principal); R93.2 Abnormal findings on diagnostic imaging of liver and biliary tract; R16.1 Splenomegaly, not elsewhere classified; K74.60 Unspecified cirrhosis of liver

== ENCOUNTER → 2024-04-20 | Outpatient (CLI) | payer OTHER ==
[2024-04-20 12:58] LABS: INR 1.43
[2024-04-20 13:03] LABS: BASO # 0.1 10^3/uL (0.0-0.2); BASO % 1.2 % (0.0-1.0); EOS # 0.3 10^3/uL (0.0-0.5); EOS % 4.5 % (0.0-3.0); HEMATOCRIT 29.9 % (36.0-47.0); HEMOGLOBIN 9.7 g/dl (12.0-15.5); LYMPH # 2.4 10^3/uL (1.5-5.0); MEAN CORPUSCULAR HEMOGLOBIN 29.4 pg (27.0-33.0); MEAN CORPUSCULAR HGB CONC 32.4 g/dl (32.0-36.5); MEAN CORPUSCULAR VOLUME 90.6 fl (80.0-96.0); MONO # 0.7 10^3/uL (0.0-0.8); NEUTROPHILS # 3.2 10^3/uL (1.5-8.5); NEUTROPHILS % 48.2 % (36.0-66.0); PLATELET COUNT, AUTOMATED 103 10^3/uL (150-450); WHITE BLOOD COUNT 6.7 10^3/uL (4.0-10.0)
[2024-04-20 13:08] LABS: ALBUMIN 3.2 G/DL (3.2-5.2); ALKALINE PHOSPHATASE 127 U/L (46-116); ALT/SGPT 25 U/L (7.0-40); AST/SGOT 46 U/L (<34); BILIRUBIN,TOTAL 1.2 MG/DL (0.3-1.2); BLOOD UREA NITROGEN 13 MG/DL (9-23); CALCIUM LEVEL 10.3 MG/DL (8.5-10.1); CARBON DIOXIDE LEVEL 32 MMOL/L (20-31); CHLORIDE LEVEL 106 MMOL/L (98-107); CREATININE FOR GFR 0.75 MG/DL (0.55-1.30); GLOMERULAR FILTRATION RATE > 60.0 (>58); GLUCOSE, FASTING 102 MG/DL (60-100); POTASSIUM SERUM 4.2 MMOL/L (3.5-5.1); SODIUM LEVEL 141 MMOL/L (136-145); TOTAL PROTEIN 7.2 G/DL (5.7-8.2)
== END ==
LOC: M PLALAB 09:08
PROVIDERS: ATTEND Internal Medicine Gastroenterology
DX: K70.31 Alcoholic cirrhosis of liver with ascites (principal); I85.01 Esophageal varices with bleeding

== ENCOUNTER 2024-08-08 11:30 | Day surgery (SDC) | payer MEDICARE ==
[~2024-08-08] VITALS: Ht 170.2 cm; Wt 59.0 kg
[~2024-08-08 11:30] MED LIST changes: +BUPR20DI3 TOP; +CARV6.25 PO; +GLYCOPYRROLATE INJ 0.2 MG/ML 2 ML VIAL As Ordered ONE; +LIDOCAINE 2% 100MG/5ML SDV (FOR ANES.) As Ordered ONE; +MAGN400C PO; +OXYC1CAP2 PO; +PANT40TA29 PO; +SPIR100T3 PO; +TRAZ1TAB10 PO; +VENL25TA20 PO; +fentaNYL 100 MCG/2 ML INJECTION As Ordered ONE; +propofoL 200 MG/20 ML VIAL As Ordered ONE
[2024-08-08] MEDS ORDERED: LIDOCAINE VISCOUS 2% SOLN 15ML UDC As Ordered ONE (14:58)
[2024-08-08 15:11] VITALS: BP 126/69; O2SAT 99
== END 2024-08-08 15:24 | disposition home or self-care (01) ==
LOC: M OPP 11:30
PROVIDERS: ATTEND Internal Medicine Gastroenterology
DX: I85.00 Esophageal varices without bleeding (principal); K31.89 Other diseases of stomach and duodenum; K76.6 Portal hypertension; Z88.2 Allergy status to sulfonamides; Z88.8 Allergy status to other drugs, medicaments and biological substances; Z79.891 Long term (current) use of opiate analgesic; Z79.899 Other long term (current) drug therapy; F17.210 Nicotine dependence, cigarettes, uncomplicated; F17.290 Nicotine dependence, other tobacco product, uncomplicated
CPT/HCPCS: 43244; 88305; J1596; J3010

== ENCOUNTER 2024-09-05 13:26 | Day surgery (SDC) | payer MEDICARE ==
[~2024-09-05] VITALS: Ht 170.2 cm; Wt 70.3 kg
[~2024-09-05 13:26] MED LIST changes: -GLYCOPYRROLATE INJ 0.2 MG/ML 2 ML VIAL As Ordered ONE; +MULT-90 PO; +PRAM0.252 PO; -fentaNYL 100 MCG/2 ML INJECTION As Ordered ONE
[2024-09-05 17:00] VITALS: BP 112/56; O2SAT 95
== END 2024-09-05 17:25 | disposition home or self-care (01) ==
LOC: M OPP 13:26
PROVIDERS: ATTEND Internal Medicine Gastroenterology
DX: K31.89 Other diseases of stomach and duodenum (principal); K76.6 Portal hypertension; I85.00 Esophageal varices without bleeding; Z88.2 Allergy status to sulfonamides; Z88.8 Allergy status to other drugs, medicaments and biological substances; Z79.891 Long term (current) use of opiate analgesic; Z79.899 Other long term (current) drug therapy; K70.30 Alcoholic cirrhosis of liver without ascites; F17.210 Nicotine dependence, cigarettes, uncomplicated

== ENCOUNTER → 2024-09-14 | Outpatient (CLI) | payer MEDICARE ==
[~2024-09-14] MED LIST changes: -LIDOCAINE 2% 100MG/5ML SDV (FOR ANES.) As Ordered ONE; -propofoL 200 MG/20 ML VIAL As Ordered ONE
== END ==
LOC: M PLARAD 09:35
PROVIDERS: ATTEND Internal Medicine Gastroenterology
DX: D37.2 Neoplasm of uncertain behavior of small intestine (principal); R93.2 Abnormal findings on diagnostic imaging of liver and biliary tract; K70.31 Alcoholic cirrhosis of liver with ascites

== ENCOUNTER → 2024-09-14 | Outpatient (CLI) | payer MEDICARE ==
[2024-09-14 13:00] LABS: BASO # 0.1 10^3/uL (0.0-0.2); BASO % 1.1 % (0.0-1.0); EOS # 0.2 10^3/uL (0.0-0.5); EOS % 3.2 % (0.0-3.0); HEMATOCRIT 27.4 % (36.0-47.0); HEMOGLOBIN 8.6 g/dl (12.0-15.5); LYMPH # 1.5 10^3/uL (1.5-5.0); LYMPH % 22.4 % (24.0-44.0); MEAN CORPUSCULAR HEMOGLOBIN 25.5 pg (27.0-33.0); MEAN CORPUSCULAR HGB CONC 31.4 g/dl (32.0-36.5); MEAN CORPUSCULAR VOLUME 81.3 fl (80.0-96.0); MONO # 0.7 10^3/uL (0.0-0.8); MONO % 10.1 % (2.0-8.0); NEUTROPHILS # 4.2 10^3/uL (1.5-8.5); NEUTROPHILS % 62.9 % (36.0-66.0); PLATELET COUNT, AUTOMATED 175 10^3/uL (150-450); RED BLOOD COUNT 3.37 10^6/uL (4.00-5.40); WHITE BLOOD COUNT 6.6 10^3/uL (4.0-10.0)
[2024-09-14 13:08] LABS: INR 1.26; PROTHROMBIN TIME 16.1 SECONDS (12.5-14.5)
[2024-09-14 13:26] LABS: ALBUMIN 3.2 G/DL (3.2-5.2); ALKALINE PHOSPHATASE 144 U/L (35-104); ALT/SGPT 24 U/L (7.0-40); AST/SGOT 40 U/L (<34); BILIRUBIN,DIRECT 0.3 MG/DL (<0.4); BILIRUBIN,TOTAL 0.7 MG/DL (0.3-1.2); BLOOD UREA NITROGEN 18 MG/DL (9-23); CALCIUM LEVEL 9.4 MG/DL (8.5-10.1); CARBON DIOXIDE LEVEL 27 MMOL/L (20-31); CHLORIDE LEVEL 104 MMOL/L (98-107); CREATININE FOR GFR 0.57 MG/DL (0.55-1.30); GLOMERULAR FILTRATION RATE > 60.0 (>58); GLUCOSE, FASTING 87 MG/DL (60-100); POTASSIUM SERUM 4.2 MMOL/L (3.5-5.1); SODIUM LEVEL 139 MMOL/L (136-145)
== END ==
LOC: M PLALAB 09:43
PROVIDERS: ATTEND Internal Medicine Gastroenterology
DX: D37.6 Neoplasm of uncertain behavior of liver, gallbladder and bile ducts (principal); K70.31 Alcoholic cirrhosis of liver with ascites

== ENCOUNTER → 2024-09-27 | Outpatient (CLI) | payer OTHER | LOC: M WHC 09:05 | PROVIDERS: ATTEND Family Medicine | DX: N64.4 Mastodynia (principal); R79.89 Other specified abnormal findings of blood chemistry ==

== ENCOUNTER 2024-10-06 11:21 | Emergency (ER) | payer OTHER ==
[~2024-10-06] VITALS: Ht 162.6 cm; Wt 74.3 kg
[2024-10-06 12:09] LABS: BASO # 0.1 10^3/uL (0.0-0.2); BASO % 0.9 % (0.0-1.0); EOS # 0.3 10^3/uL (0.0-0.5); EOS % 3.9 % (0.0-3.0); HEMATOCRIT 26.2 % (36.0-47.0); HEMOGLOBIN 8.2 g/dl (12.0-15.5); LYMPH # 1.9 10^3/uL (1.5-5.0); LYMPH % 29.8 % (24.0-44.0); MEAN CORPUSCULAR HEMOGLOBIN 24.8 pg (27.0-33.0); MEAN CORPUSCULAR HGB CONC 31.3 g/dl (32.0-36.5); MEAN CORPUSCULAR VOLUME 79.4 fl (80.0-96.0); MONO # 0.4 10^3/uL (0.0-0.8); MONO % 6.9 % (2.0-8.0); NEUTROPHILS # 3.7 10^3/uL (1.5-8.5); NEUTROPHILS % 58.2 % (36.0-66.0); PLATELET COUNT, AUTOMATED 161 10^3/uL (150-450); WHITE BLOOD COUNT 6.4 10^3/uL (4.0-10.0)
[2024-10-06 12:15] LABS: KETONE, URINE AUTO RFX NEGATIVE (NEGATIVE); LEUKOCYTE ESTERASE UR AUTO RFX NEGATIVE (NEGATIVE); NITRITE, URINE AUTO RFX NEGATIVE (NEGATIVE); RBC, URINE AUTO RFX 1 /HPF (0-3); SQUAM EPITHELIAL CELL UR AURFX 0 /HPF (0-6); WBC, URINE AUTO RFX 3 /HPF (0-3)
[2024-10-06 12:38] LABS: ALBUMIN 2.9 G/DL (3.2-5.2); ALKALINE PHOSPHATASE 117 U/L (35-104); ALT/SGPT 21 U/L (7.0-40); AST/SGOT 36 U/L (<34); BILIRUBIN,DIRECT 0.4 MG/DL (<0.4); BLOOD UREA NITROGEN 12 MG/DL (9-23); CALCIUM LEVEL 9.1 MG/DL (8.5-10.1); CARBON DIOXIDE LEVEL 25 MMOL/L (20-31); CHLORIDE LEVEL 110 MMOL/L (98-107); CK-MB VALUE MASS < 1.0 NG/ML (<3.6); CPK CREATINE PHOSPHOKINASE 32 U/L (34-145); CREATININE FOR GFR 0.52 MG/DL (0.55-1.30); GLOMERULAR FILTRATION RATE > 60.0 (>58); GLUCOSE, FASTING 85 MG/DL (60-100); MB/CK RELATIVE INDEX 3.12 (< OR =4); POTASSIUM SERUM 4.2 MMOL/L (3.5-5.1); SODIUM LEVEL 141 MMOL/L (136-145); THYROID STIMULATING HORMONE 2.976 uIU/ML (0.55-4.78); TOTAL PROTEIN 6.3 G/DL (5.7-8.2)
[2024-10-06 12:40] LABS: PHENCYCLIDINE URINE NEGATIVE (NEGATIVE)
[2024-10-06 12:41] LABS: AMPHETAMINES LEVEL URINE NEGATIVE (NEGATIVE); BENZODIAZEPINES URINE NEGATIVE (NEGATIVE); CANNABINOIDS URINE NEGATIVE (NEGATIVE)
[2024-10-06 12:42] LABS: BARBITURATES URINE NEGATIVE (NEGATIVE); COCAINE METABOLITE URINE NEGATIVE (NEGATIVE); METHADONE URINE NEGATIVE (NEGATIVE)
[2024-10-06 12:47] LABS: OPIATES URINE POSITIVE (NEGATIVE)
[2024-10-06] MEDS: NALOXONE 2MG/2ML SYRINGE IV STA ×3 (13:06→16:48)
[2024-10-06] MEDS: NS (Normal Saline) 0.9% 1,000 ML IV SCH (13:10)
[2024-10-06 13:22] LABS: URINE PREG TEST NEGATIVE (NEGATIVE)
[2024-10-06 13:31] LABS: ETHYL ALCOHOL (ETHANOL) < 0.003 % (0.000-0.010)
[2024-10-06 14:23] LABS: CK-MB VALUE MASS < 1.0 NG/ML (<3.6)
[2024-10-06 14:24] LABS: CPK CREATINE PHOSPHOKINASE 37 U/L (34-145)
[2024-10-06] MEDS ORDERED: ISOVUE-370 76% 100ML VIAL As Ordered ONE (14:37)
[2024-10-06 14:53] LABS: LIPASE 39 U/L (12-53)
[2024-10-06] MEDS ORDERED: HOME MED LIST COMPLETE! XX SCH (16:50)
[2024-10-06 17:17] LABS: INR 1.43; PROTHROMBIN TIME 17.7 SECONDS (12.5-14.5)
[2024-10-06] MEDS: LACTULOSE 20GM/30ML SYRUP UDC PO SCH (18:04)
[2024-10-06 18:21] LABS: PROCALCITONIN 0.06 ng/ml
[2024-10-06] MEDS: FUROSEMIDE 40 MG TAB PO SCH (20:31)
[2024-10-06 20:32] VITALS: BP 105/55
[2024-10-06] MEDS: CARVedilol 6.25 MG TAB PO SCH (20:32)
[2024-10-06] MEDS: OMEPRAZOLE 20MG CAP PO SCH (20:32)
[2024-10-06] MEDS: cefTRIAXone SOD 2 GM in DEXTROSE 5% (D5W) ADV/MINI-BAG 50 ML IV SCH (20:32)
[2024-10-06 21:37] VITALS: BP 114/65; TEMP 97.5; O2SAT 93
[2024-10-06] MEDS: HYDROMORPHONE HCL 0.5 MG/ 0.5 ML SYRINGE IV ONE (21:37)
[2024-10-07] MEDS ORDERED: SPIRONOLACTONE 50 MG TAB PO SCH (09:00)
[2024-10-07] MEDS ORDERED: PRAMIPEXOLE 0.25 MG TAB PO SCH (09:00)
[2024-10-11 14:03] LABS: PHOSPHATIDYLETHANOL NEGATIVE ng/mL (<20)
== END 2024-10-06 21:45 | disposition short-term general hospital (02) ==
LOC: EDBD 11:21 → M ED 11:21
DX: R41.82 Altered mental status, unspecified (principal); D64.9 Anemia, unspecified; E72.20 Disorder of urea cycle metabolism, unspecified; I95.9 Hypotension, unspecified; I10 Essential (primary) hypertension; E78.5 Hyperlipidemia, unspecified; K70.30 Alcoholic cirrhosis of liver without ascites; F10.10 Alcohol abuse, uncomplicated; F17.200 Nicotine dependence, unspecified, uncomplicated; R94.31 Abnormal electrocardiogram [ECG] [EKG]; Z88.1 Allergy status to other antibiotic agents; Z88.2 Allergy status to sulfonamides; Z79.899 Other long term (current) drug therapy; I85.00 Esophageal varices without bleeding; R16.1 Splenomegaly, not elsewhere classified
CPT/HCPCS: 70450; 71045; 74177; 80047; 80048; 80076; 80307; 80321; 82077; 82140; 82550; 82553; 83690; 84145; 84443; 84484; 84703; 85025; 85610; 87088; 87186; 93005; 93041; 94760; 96365; 96375; 96376; 99285; J0696; J1171; J2310; Q9967

== ENCOUNTER → 2025-03-07 | Outpatient (CLI) | payer MEDICARE, OTHER ==
[~2025-03-07] MED LIST changes: -NADO20TA PO; +NADO20TA38 PO
== END ==
LOC: M SOG 06:51
PROVIDERS: ATTEND Orthopaedic Surgery
DX: M25.551 Pain in right hip (principal); M25.552 Pain in left hip

== ENCOUNTER → 2025-03-14 | Outpatient (CLI) | payer MEDICARE, OTHER | LOC: M WHC 13:00 | PROVIDERS: ATTEND Orthopaedic Surgery | DX: M87.051 Idiopathic aseptic necrosis of right femur (principal); Z79.899 Other long term (current) drug therapy; M81.8 Other osteoporosis without current pathological fracture ==

== ENCOUNTER → 2025-03-14 | Outpatient (CLI) | payer MEDICARE ==
[2025-03-14 15:10] LABS: BASO # 0.1 10^3/uL (0.0-0.2); BASO % 0.9 % (0.0-1.0); EOS # 0.1 10^3/uL (0.0-0.5); EOS % 2.6 % (0.0-3.0); LYMPH # 1.5 10^3/uL (1.5-5.0); LYMPH % 27.4 % (24.0-44.0); MONO # 0.7 10^3/uL (0.0-0.8); MONO % 12.8 % (2.0-8.0); NEUTROPHILS # 3.0 10^3/uL (1.5-8.5); NEUTROPHILS % 55.9 % (36.0-66.0); PLATELET COUNT, AUTOMATED 122 10^3/uL (150-450)
[2025-03-14 15:13] LABS: C REACTIVE PROTEIN QUANTITATIV < 0.50 MG/DL (<1.0); INR 1.3
[2025-03-14 15:14] LABS: ALT/SGPT 18 U/L (7.0-40); AST/SGOT 38 U/L (<34); CALCIUM LEVEL 8.7 MG/DL (8.5-10.1); CARBON DIOXIDE LEVEL 29 MMOL/L (20-31); CHLORIDE LEVEL 105 MMOL/L (98-107); CREATININE FOR GFR 0.55 MG/DL (0.55-1.30); GLOMERULAR FILTRATION RATE > 90.0 (>58); POTASSIUM SERUM 4.0 MMOL/L (3.5-5.1); SODIUM LEVEL 142 MMOL/L (136-145)
[2025-03-14 15:15] LABS: ERYTHROCYTE SEDIMENTATION RATE 28 mm/hr (0-20)
[2025-03-14 15:16] LABS: TOTAL 25(OH) VITAMIN D 25.3 NG/ML (20.0-100.0)
== END ==
LOC: M PLALAB 13:02
PROVIDERS: ATTEND Orthopaedic Surgery
DX: M87.051 Idiopathic aseptic necrosis of right femur (principal)

== ENCOUNTER → 2025-03-27 | Outpatient (CLI) | payer MEDICARE | LOC: M PLAIMG 13:13 | PROVIDERS: ATTEND Orthopaedic Surgery | DX: M87.051 Idiopathic aseptic necrosis of right femur (principal) ==

== ENCOUNTER → 2025-04-03 | Outpatient (CLI) | payer MEDICARE | LOC: M PLAIMG 13:59 | PROVIDERS: ATTEND Orthopaedic Surgery | DX: M87.051 Idiopathic aseptic necrosis of right femur (principal); M70.62 Trochanteric bursitis, left hip; M16.12 Unilateral primary osteoarthritis, left hip; M87.852 Other osteonecrosis, left femur ==

== ENCOUNTER → 2025-06-20 | Outpatient (CLI) | payer MEDICARE ==
[2025-06-20 13:05] LABS: BASO # 0.1 10^3/uL (0.0-0.2); BASO % 0.8 % (0.0-1.0); EOS # 0.3 10^3/uL (0.0-0.5); EOS % 3.2 % (0.0-3.0); LYMPH # 2.0 10^3/uL (1.5-5.0); LYMPH % 23.3 % (24.0-44.0); MONO # 0.7 10^3/uL (0.0-0.8); MONO % 8.6 % (2.0-8.0); NEUTROPHILS # 5.4 10^3/uL (1.5-8.5); NEUTROPHILS % 63.9 % (36.0-66.0); PLATELET COUNT, AUTOMATED 143 10^3/uL (150-450)
[2025-06-20 13:12] LABS: IRON (FE) 107.0 UG/DL (50-170); PERCENT SATURATION 26.0 % (13.2-45.0)
== END ==
LOC: M PLALAB 08:14
PROVIDERS: ATTEND Family Medicine
DX: D50.9 Iron deficiency anemia, unspecified (principal)

== ENCOUNTER → 2025-06-20 | Outpatient (CLI) | payer MEDICARE ==
[2025-06-20 13:06] LABS: BASO # 0.1 10^3/uL (0.0-0.2); BASO % 0.9 % (0.0-1.0); EOS # 0.3 10^3/uL (0.0-0.5); EOS % 3.6 % (0.0-3.0); LYMPH # 1.9 10^3/uL (1.5-5.0); LYMPH % 23.3 % (24.0-44.0); MONO # 0.7 10^3/uL (0.0-0.8); MONO % 8.9 % (2.0-8.0); NEUTROPHILS # 5.1 10^3/uL (1.5-8.5); NEUTROPHILS % 63.1 % (36.0-66.0); PLATELET COUNT, AUTOMATED 148 10^3/uL (150-450)
[2025-06-20 13:12] LABS: C REACTIVE PROTEIN QUANTITATIV < 0.50 MG/DL (<1.0)
[2025-06-20 13:13] LABS: ALT/SGPT 32 U/L (7.0-40); AST/SGOT 47 U/L (<34); CALCIUM LEVEL 9.3 MG/DL (8.5-10.1); CARBON DIOXIDE LEVEL 30 MMOL/L (20-31); CHLORIDE LEVEL 99 MMOL/L (98-107); CREATININE FOR GFR 0.58 MG/DL (0.55-1.30); GLOMERULAR FILTRATION RATE > 90.0 (>58); POTASSIUM SERUM 4.3 MMOL/L (3.5-5.1); SODIUM LEVEL 137 MMOL/L (136-145)
[2025-06-20 13:14] LABS: TOTAL 25(OH) VITAMIN D 55.2 NG/ML (20.0-100.0)
[2025-06-20 13:22] LABS: INR 1.16
[2025-06-20 14:06] LABS: ESTIMATED AVERAGE GLUCOSE 100.0 MG/DL (60-110)
== END ==
LOC: M PLALAB 08:10
PROVIDERS: ATTEND Orthopaedic Surgery
DX: Z01.818 Encounter for other preprocedural examination (principal); D50.9 Iron deficiency anemia, unspecified; M87.051 Idiopathic aseptic necrosis of right femur; Z79.899 Other long term (current) drug therapy